=== PATIENT | male | born 1955 | race Caucasian/White ===

== ENCOUNTER 2019-03-11 07:06 | Outpatient (CLI) | payer BC, SELFPAY ==
--- NOTE | 2019-03-11 07:17 | XR_ITS ---
WS: [id number] KUB, 03/11/2019 Clinical Data: RIGHT FLANK PAIN Comparison: KUB, 03/12/2017. Findings: No abnormal intraabdominal masses are seen. There is no dilatated small bowel or evidence of obstruc tion. There is fecal material overlying the right kidney but there may be several right renal calcification s. No definite left renal calcifications are seen. There are clips adjacent to the medial left diaphr agm and also in the right side of the abdomen adjacent to the T10-T11 intervertebral disc. There is a lso a small wire which extends from the chest to overlie the left upper quadrant. Phleboliths are see n in the pelvis. There are vasectomy clips overlying both scrotums. XR/XR abdomen 1V* [id number] Impression: 1. Possible right renal calcifications. 2. Large amount of fecal material in the colon.
== END 2019-03-11 07:07 | disposition home or self-care (01) ==
LOC: RAD 07:11
PROVIDERS: Family Provider Electrodiagnostic Medicine; PCP Electrodiagnostic Medicine; Visit Provider Urology
DX: K59.00 Constipation, unspecified (principal); R10.9 Unspecified abdominal pain
CPT/HCPCS: 74018; 81001

== ENCOUNTER → 2019-12-18 17:45 | Outpatient (BNVA) | payer BC, SELFPAY | PROVIDERS: Family Provider Electrodiagnostic Medicine; PCP Electrodiagnostic Medicine; Visit Provider Nurse Practitioner Family | DX: Z20.828 Contact with and (suspected) exposure to other viral communicable diseases (principal) | CPT/HCPCS: 87635 ==

== ENCOUNTER 2021-03-12 11:59 | Outpatient (CLI) | payer MEDICARE, OTHER, SELFPAY ==
--- NOTE | 2021-03-12 12:00 | XR_ITS ---
WS: [id number] XR KUB [id number] REASON FOR EXAM: RENAL CALCULUS, RIGHT FINDINGS: Right renal calculi without interval change compared to 03/11/2019. No other significant abdominal or pelvic finding. XR/XR KUB [id number] IMPRESSION: Stable right renal calculi.
== END 2021-03-12 12:00 | disposition home or self-care (01) ==
PROVIDERS: PCP Electrodiagnostic Medicine; Visit Provider Urology
DX: N20.0 Calculus of kidney (principal); N52.1 Erectile dysfunction due to diseases classified elsewhere
CPT/HCPCS: 74018; 81003; 84153

== ENCOUNTER → 2021-05-29 09:40 | Outpatient (BNVA) | payer MEDICARE, OTHER, SELFPAY | PROVIDERS: PCP Electrodiagnostic Medicine; Visit Provider Internal Medicine Cardiovascular Disease | DX: I25.10 Atherosclerotic heart disease of native coronary artery without angina pectoris (principal); I10 Essential (primary) hypertension; E78.5 Hyperlipidemia, unspecified | CPT/HCPCS: 99214 ==

== ENCOUNTER 2021-07-25 08:11 | Outpatient (CLI) | payer MEDICARE, OTHER, SELFPAY ==
--- NOTE | 2021-07-25 08:45 | USCV_ITS ---
Blas Cummings Age: 65 Gender: M : 1955 Exam Date: 07/25/2021 08:26 Ordering Phys: Apolonia Davila MD ([email or web address]) Technologist: Jarrett Ramsay Exam Location: [facility] [place] Indication: DIZZY Risk Factors: Previous Vascular Surgery: Right Brachial BP: / Left Brachial BP: / Right Left Velocity (cm/s) Spectral Plaque Velocity (cm/s) Spectral Plaque Syst/Diast Broadening Syst/Diast Broadening 90.40/ 20.90 Prox CCA 84.10 / 17.10 108.10/13.20 Mid CCA 102.50/ 19.70 88.20/ 19.80 Distal CCA 82.80 / 17.10 78.30/ 15.40 Prox ICA 59.80 / 11.10 78.30/ 27.60 Mid ICA 63.20 / 17.10 100.30/32.00 Distal ICA 83.70 / 21.40 118.00 ECA 119.60 0.93 ICA/CCA 0.82 Antegrade Vertebral Antegrade 42.20/ 11.70 cm/s 79.50/ 21.40 cm/s Bi Subclavian Tri 107.7 0 FINDINGS Minimal plaques bilaterally at the bifurcations. Antegrade flow in the vertebral arteries bilaterally. Normal Doppler flow velocities in the vertebral and external carotid arteries bilaterally CONCLUSIONS Minimal plaques bilaterally at the bifurcations, suggesting less than 50% stenosis. No significant stenosis in the external carotid or the vertebral arteries bilaterally based on the Doppler flow velocities. No similar previous studies are available for comparison Dr Apolonia Davila MD [facility] (Electronically Signed) Final Date: 26 Jul 2021 07:56 S
== END 2021-07-25 08:12 | disposition home or self-care (01) ==
PROVIDERS: PCP Electrodiagnostic Medicine; Visit Provider Internal Medicine Cardiovascular Disease
DX: I77.9 Disorder of arteries and arterioles, unspecified (principal); R09.89 Other specified symptoms and signs involving the circulatory and respiratory systems
CPT/HCPCS: 93880

== ENCOUNTER → 2022-01-01 12:03 | Outpatient (BNVA) | payer MEDICARE, OTHER, SELFPAY | PROVIDERS: PCP Electrodiagnostic Medicine; Visit Provider Internal Medicine Cardiovascular Disease | DX: I10 Essential (primary) hypertension (principal); E78.5 Hyperlipidemia, unspecified; I25.10 Atherosclerotic heart disease of native coronary artery without angina pectoris; Z95.1 Presence of aortocoronary bypass graft; Z87.891 Personal history of nicotine dependence | CPT/HCPCS: 99213; 99214 ==

== ENCOUNTER → 2022-01-16 10:43 | Outpatient (BNVA) | payer MEDICARE, OTHER, SELFPAY | PROVIDERS: PCP Electrodiagnostic Medicine; Visit Provider Otolaryngology | DX: H91.91 Unspecified hearing loss, right ear (principal); H92.01 Otalgia, right ear; M26.623 Arthralgia of bilateral temporomandibular joint | CPT/HCPCS: 99203 ==

== ENCOUNTER 2022-03-24 05:35 | Inpatient (IN) | payer MEDICARE, SELFPAY ==
[2022-03-24] VITALS (33 sets, daily range): BP systolic 92–199; BP diastolic 51–117; PULSE 54–97; RESP 12–23; TEMP 36.6; O2SAT 91–100; BMI 29.7
--- NOTE | 2022-03-24 05:43 | XRR_ITS ---
PROCEDURE INFORMATION: Exam: XR Chest Exam date and time: 03/24/2022 5:59 AM Age: 66 years old Clinical indication: Pain; Chest pressure; Prior surgery; Surgery type: Heart; Additional info: Cp TECHNIQUE: Imaging protocol: Radiologic exam of the chest. Views: 1 view. COMPARISON: CR XR chest 1V [id number] 22/07/2018 16:47 FINDINGS: Lungs: Unremarkable. No consolidation. Pleural spaces: Unremarkable. No pleural effusion. No pneumothorax. Heart/Mediastinum: CABG again seen. Diffuse vascular calcification. The heart is normal size. Bones/joints: Unremarkable. XR/XR chest 1V portable [id number] IMPRESSION: No acute finding.
--- NOTE | 2022-03-24 05:57 | ECG_ITS ---
[facility] Test Date: 2022-03-24 Pat Name: Blas Cummings Department: Room: Gender: Male Script Coordinator: : 1955 Requested By: Moi Chang Order Number: [id number] Mikaela MD: Shayla Lima M.D. Measurements Intervals [place] Rate: 76 P: 19 VA: 168 QRS: 29 QRSD: 89 T: 11 QT: 364 QTc: 410 Interpretive Statements SINUS RHYTHM Compared to ECG 07/22/2018 21:37:31 No significant changes Electronically Signed On 03-24-2022 8:45:37 AIR TRAFFIC INSTRUCTOR by Shayla Lima M.D. [id number]
[2022-03-24 06:12] LABS: Basophils # 0.1 10^3/uL (0.0-0.1); Basophils % 0.9 %; Eosinophils # 0.4 10^3/uL (0.0-0.8); Eosinophils % 5.1 %; Hematocrit 46.6 % (42.0-52.0); Hemoglobin 15.3 g/dL (11.7-16.6); Lymphocytes % 29.2 %; Mean Corpuscular HGB Conc 32.8 g/dL (30.0-36.0); Mean Corpuscular Hemoglobin 29.2 pg (28.0-34.0); Mean Corpuscular Volume 88.9 fl (80-94); Mean Platelet Volume 8.6 fL (7.4-10.4); Monocytes # 0.8 10^3/uL (0.2-0.9); Monocytes % 11.1 %; Neutrophils # 3.69 10^3/uL (1.8-7.7); Neutrophils % 53.4 %; Nucleated Red Blood Cells % 0 %; Platelet Count 270 10^3/cmm (130-400); Red Blood Count 5.24 10^6/uL (4.1-5.3); Red Cell Distribution Width 13.1 % (12.1-15.1); White Blood Count 6.9 10^3/uL (4.0-10.0)
--- NOTE | 2022-03-24 06:30 | CTR_ITS ---
PROCEDURE INFORMATION: Exam: CTA Chest With Contrast Exam date and time: 03/24/2022 7:09 AM Age: 66 years old Clinical indication: Pain; Chest pressure; Prior surgery; Surgery type: Cabg; Additional info: Chest pain TECHNIQUE: Imaging protocol: Computed tomographic angiography of the chest with contrast. 3D rendering (Not supervised by radiologist): MIP reconstructed images were created by the technologist. Radiation optimization: All CT scans at this facility use at least one of these dose optimization techniques: automated exposure control; mA and/or kV adjustment per patient size (includes targeted exams where dose is matched to clinical indication); or iterative reconstruction. Contrast material: OMNI 350; Contrast volume: 90 ml; Contrast route: INTRAVENOUS (IV); COMPARISON: CR (CHEST, ) 03/24/2022 5:59 AM RADIATION DOSE METRICS: Total DLP (mGy-cm): 428.13 FINDINGS: Pulmonary arteries: No pulmonary artery embolism identified. Aorta: The pulmonary artery phase bolus is suboptimal for imaging of the aorta and systemic arteries. No thoracic aortic aneurysm. No displaced intimal calcifications as visualized. Thyroid: The bilateral thyroid lobes are unremarkable. Lungs: Anterior right middle lobe medial segment pulmonary parenchymal scarring. Inferior segment lingular pulmonary subsegmental atelectasis/scarring. Peripheral left lower lobe lateral basilar segment mild cicatricial bronchiectasis. A true fissural 2.8 mm noncalcified pulmonary nodule is noted in the superior segment of the left lower lobe (LOC -156.6). Pleural spaces: No pneumothorax. No pleural effusion. Heart: Normal. No pericardial effusion. Coronary arteries: Atherosclerotic calcifications are present involving the LAD coronary artery. Lad and RCA coronary artery stents. Status post coronary artery stenting. Bolus phase limits assessment of coronary artery grafts. Lymph nodes: Bilateral hilar granulomatous jamarcus calcifications are present. Small triangular subpleural lymph node of the right middle lobe at the minor fissure. Bones/joints: Thoracic spine vertebral body marginal osteophytes are noted at multiple levels. Mild rightward upper thoracic spinal curvature. The patient is status post median sternotomy with sternal cerclage wires. Soft tissues: Unremarkable. CT/CT angio chest PE protcl [id number] IMPRESSION: 1. No pulmonary artery embolism identified. 2. Limitations in assessment of aortic pathology as above due to bolus timing. 3. Coronary atherosclerosis. 4. Noncalcified left lower lobe pulmonary nodule. For patients at low risk (minimal or absent history of smoking and of other known risk factors), no routine follow-up is indicated. For patients at high risk (history of smoking or of other known risk factors), consider optional CT at 12 months. (Sushma et al., Fleischner Society, 2017).
[2022-03-24 06:33] LABS: Troponin(5th) Baseline 9 ng/L (0-15)
--- NOTE | 2022-03-24 06:34 | ED_ITS ---
HPI - Chest Pain General: Chief Complaint: Chest Pain Stated Complaint: CP Time Seen by Provider: 03/24/22 06:23 History of Present Illness: 66-year-old male with a history of coronary artery disease, status post three-vessel bypass grafting, history of hypertension and hyperlipidemia who presents with chest pain which started this morning approximately 15 minutes prior to arrival to the emergency department. Patient states that the pain feels like a tightness, located in the midsternal chest area. There is no radiation. He denies feeling more short of breath. He has had nausea but no diaphoresis. He denies fever. He states he has had a cough productive of green sputum for the past 2 days. He states he took some leftover amoxicillin the past few days and the cough is improved. States this feels different than his prior cardiac pain. No prior history of DVT or pulmonary embolism. Associated symptoms: Deny abdominal pain, diaphoresis, fever(s), nausea, palpitations or vomiting Review of Systems General: Reports: 10 or more systems reviewed and unremarkable except in HPI and below Const: Denies: fever(s), chills, body aches or diaphoresis ENMT: Reports: epistaxis; Denies: throat pain, post nasal drip or sinus pain Card: Reports: chest pain; Denies: palpitations, irregular heart rhythm, dyspnea on exertion or orthopnea Resp: Reports: productive cough and chest congestion; Denies: hemoptysis GI: Denies: abdominal pain, nausea, vomiting or diarrhea Musc: Denies: extremity swelling PFSH ED PFSH: Medical History Coronary artery disease Erectile dysfunction Renal calculus, right Surgical History H/O wrist surgery History of extraction of renal calculus History of hernia surgery Status post coronary artery bypass graft Status post coronary artery stent placement Family History Father , AT AGE 52 CEREBRAL HEMORRHAGE Stroke Mother , AT AGE 90 ALZHEIMERS Anesthesia complication CAD (coronary artery disease), Onset Age: 60 enlarged heart Dementia Brother Anesthesia complication CAD (coronary artery disease), Onset Age: 60 stents Sister Anesthesia complication Grandfather Cancer Grandmother Cancer Denies family history of Diabetes Clotting disorder Chronic kidney disease (CKD) Suicide Bleeding disorder Lung disease Social History Smoking and tobacco status: former smoker Alcohol intake: never Adopted: No Caregiver/support person: No Marital status: Current occupational status: employed Physical Exam Const: COMMON NORMALS: no acute distress, patient oriented x3, healthy appearing and alert HENMT: COMMON NORMALS: normocephalic, atraumatic, external ears normal, Normal external nose present, Normal nasal mucous membranes and turbinates present and oropharynx normal HEAD & SCALP: normocephalic and atraumatic NOSE: Normal external nose present and Normal nasal mucous membranes and turbinates present EXTERNAL EAR: Yes external ears normal Eye: COMMON NORMALS: Equal, round and reactive pupils present, EOMs intact bilaterally and conjunctivae normal CONJUNCTIVA: Yes conjunctivae normal PUPIL: Yes Equal, round and reactive pupils present Neck/C-Spine: COMMON NORMALS: supple and no JVD Lymph: OTHER: No cervical lymphadenopathy Chest: OTHER: No chest wall tenderness Resp: COMMON NORMALS: normal respiratory effort, No retractions and clear to auscultation bilaterally AUSCULTATION: clear to auscultation bilaterally Cardio: COMMON NORMALS: no JVD, regular rate and regular rhythm RATE: regular rate RHYTHM: regular rhythm OTHER: Occasional PVCs GI: COMMON NORMALS: Normal to inspection, nondistended, normoactive bowel sounds present, Soft to palpation and non-tender PALPATION: Yes Soft to palpation OTHER: Nondistended Back/Pelvis: THORACIC SPINE/UPPER BACK: Yes normal to inspection and No thoracic spinal tenderness Extremity: OTHER: No swelling or tenderness Neuro: COMMON NORMALS: patient oriented x3 SENSORIUM/ORIENTATION: Yes alert Skin: COMMON NORMALS: no rashes or lesions noted GENERAL SKIN EXAM: no rashes or lesions noted Course ED course: 66-year-old male with a history of hypertension, hyperlipidemia and diabetes who presents with chest pain. The patient has a 2-day history of a preceding respiratory illness. Pain is now midsternal. He does present slightly hypertensive raising concern for possible dissection. Certainly with a recent illness, concern for COVID and possible pulmonary embolism as well. We will give the patient aspirin, nitro and morphine. If his blood pressure does not improve, he may need IV medications for blood pressure improvement. We will obtain COVID, influenza and a CTA of the chest. We will also do serial cardiac enzymes. His EKG he has T wave inversion in lead III but no other acute ischemic changes. He does not have a STEMI. Will check troponins. Reevaluation(s): Reevaluation #1: Patient's pain is now 4 out of 1:10 sublingual nitroglycerin and 4 mg of morphine IV. Patient is also been given aspirin. Patient's initial troponin was normal. At 9. Repeat 2-hour troponin is 104.7 with a delta of 95.7. We will repeat sublingual nitroglycerin and placed Nitropaste and give the patient an additional dose of morphine. We will bolus with heparin and placed on a heparin drip. Will contact cardiology. Reevaluation #2: After second sublingual nitroglycerin and Nitropaste with morphine, patient's pain is improved. We will initiate a nitro drip. Discussed with cardiology. Patient will need admission. Reevaluation #3: Patient has been titrated up to 20 mics of nitro. Pain is almost gone. Discussed with Dr. Marquez who recommends platelet therapy with aspirin and Plavix as well as heparin which is already been initiated. Recommends consulting the general web site admin and have the hospitalist admit the patient. Consultations: Consultation #1: Discussed with Dr. Marquez. Recommends starting nitro drip. If pain not gone in 10 minutes activate Jumpbasting Canvas Baster. Consultation #2: Discussed with Dr. Michael, cardiology, who will see the patient in consultation. Recommends hospitalist admit. Consultation #3: Discussed with Dr. Linda for admission Vital Signs: Vital signs: Vital Signs Pulse Rate 71 03/24/22 09:36 Respiratory Rate 20 H 03/24/22 09:36 Blood Pressure 134/99 03/24/22 09:36 Pulse Oximetry 99 03/24/22 09:36 Oxygen Delivery Me thod 03/24/22 06:45 Oxygen Flow Rate 2 03/24/22 06:45 MDM - Chest Pain Medical Decision Making Patient presents with chest pain which started 1 hour prior to arrival. He has a history of hyperlipidemia, hypertension and a previous CABG 4 years ago. Upon arrival, he did have ST segment depression in lead III. After aspirin and sublingual nitroglycerin, the ST segment depression has resolved. The patient had continued chest pain so was given morphine and placed on a nitroglycerin drip he has been bolused with heparin and placed on a heparin drip. He is also been given 324 mg of aspirin and 600 mg of Plavix. Have discussed with the brood station manager who feels that the patient is not stable for admission and they will plan for cath tomorrow. Discussed with the noninterventional web site admin for consultation as well as the hospitalist for admission. Patient did have a CTA of his chest which is negative for pulmonary embolism. There is no aortic aortic aneurysm noted on the CT. With the significant change in his troponin and the EKG changes, I feel that this is most likely acute coronary syndrome. At this point the patient is stable for admission. Lab Data 03/24/22 06:01 03/24/22 06:01 Radiology Impressions Chest X-Ray 03/24/22 05:43 IMPRESSION: No acute finding. Chest CTA 03/24/22 06:30 IMPRESSION: 1. No pulmonary artery embolism identified. 2. Limitations in assessment of aortic pathology as above due to bolus timing. 3. Coronary atherosclerosis. 4. Noncalcified left lower lobe pulmonary nodule. For patients at low risk (minimal or absent history of smoking and of other known risk factors), no routine follow-up is indicated. For patients at high risk (history of smoking or of other known risk factors), consider optional CT at 12 months. (Sushma et al., Fleischner Society, 2017). Laboratory Results WBC 6.9 10^3/uL (4.0-10.0) 03/24/22 06:01 RBC 5.24 10^6/uL (4.1-5.3) 03/24/22 06:01 Hgb 15.3 g/dL (11.7-16.6) 03/24/22 06:01 Hct 46.6 % (42.0-52.0) 03/24/22 06:01 MCV 88.9 fl (80-94) 03/24/22 06:01 MCH 29.2 pg (28.0-34.0) 03/24/22 06:01 MCHC 32.8 g/dL (30.0-36.0) 03/24/22 06:01 RDW 13.1 % (12.1-15.1) 03/24/22 06:01 Plt Count 270 10^3/cmm (130-400) 03/24/22 06:01 MPV 8.6 fL (7.4-10.4) 03/24/22 06:01 Neut % (Auto) 53.4 % 03/24/22 06:01 Lymph % (Auto) 29.2 % 03/24/22 06:01 Stearns % (Auto) 11.1 % 03/24/22 06:01 Eos % (Auto) 5.1 % 03/24/22 06:01 Baso % (Auto) 0.9 % 03/24/22 06:01 Neut # (Auto) 3.69 10^3/uL (1.8-7.7) 03/24/22 06:01 Lymph # (Auto) 2.0 10^3/uL (0.8-4.8) 03/24/22 06:01 Stearns # (Auto) 0.8 10^3/uL (0.2-0.9) 03/24/22 06:01 Eos # (Auto) 0.4 10^3/uL (0.0-0.8) 03/24/22 06:01 Baso # (Auto) 0.1 10^3/uL (0.0-0.1) 03/24/22 06:01 Nucleated RBC % (auto) 0 % 03/24/22 06:01 Nucleated RBCs # 0.0 /100WBC 03/24/22 06:01 ESR 18 mm/hr (0-10) H 03/24/22 06:01 Sodium 139 mmol/L (136-145) 03/24/22 06:01 Potassium 4.1 mmol/L (3.5-5.1) 03/24/22 06:01 Chloride 106 mmol/L (98-107) 03/24/22 06:01 Carbon Dioxide 20 mmol/L (22-29) L 03/24/22 06:01 Anion Gap 17.1 (5-19) 03/24/22 06:01 BUN 21 mg/dL (8-23) 03/24/22 06:01 Creatinine 0.8 mg/dL (0.7-1.2) 03/24/22 06:01 GFR Calculation 96.7 mL/min (90-130) 03/24/22 06:01 Glucose 121 mg/dL (65-115) H 03/24/22 06:01 Calculated Osmolality 292 mOsm/kg (285-295) 03/24/22 06:01 Calcium 9.1 mg/dL (8.5-10.5) 03/24/22 06:01 Total Bilirubin 0.2 mg/dL (0.15-1.2) 03/24/22 06:01 AST 13 U/L (0-40) 03/24/22 06:01 ALT 12 U/L (0-41) 03/24/22 06:01 Alkaline Phosphatase 74 U/L (40-130) 03/24/22 06:01 Troponin T Baseline 9 ng/L (0-15) 03/24/22 06:01 Troponin T 120 Minute 104.7 ng/L (0-15) H 03/24/22 08:10 Delta Troponin T 95.7 ABS# (0-10) H* 03/24/22 08:10 NT-Pro-B Natriuret Pep 101 pg/mL (0-125) 03/24/22 06:01 Total Protein 7.2 g/dL (6.6-8.7) 03/24/22 06:01 Albumin 3.9 g/dL (3.5-5.2) 03/24/22 06:01 Globulin 3.3 g/dL (1.3-4.6) 03/24/22 06:01 Nasal Influ A H1 2009 PCR Not detected (NOT DETECT) 03/24/22 06:45 Coronavirus 229E (PCR) Not detected (NOT DETECT) 03/24/22 06:45 Influenza A (H1) PCR Not detected (NOT DETECT) 03/24/22 06:45 Influenza A (H3) PCR Not detected (NOT DETECT) 03/24/22 06:45 Influenza Type A Ag Cancelled 03/24/22 06:45 Influenza Type A (PCR) Not detected (NOT DETECT) 03/24/22 06:45 Influenza Type B Ag Cancelled 03/24/22 06:45 Influenza Type B (PCR) Not detected (NOT DETECT) 03/24/22 06:45 SARS-CoV-2 (PCR) Not detected (NOT DETECT) 03/24/22 06:45 EKG Data EKG 1: I personally reviewed and interpreted this EKG as follows: EKG interpretation date: 03/24/22 EKG interpretation time: 06:40 Ischemic changes: t wave inversions (lead III) Interpretation: Normal axis, normal sinus rhythm. T wave inversion in lead III, no other acute ST or T wave changes. EKG 2: I personally reviewed and interpreted this EKG as follows: EKG interpretation date: 03/24/22 EKG interpretation time: 07:45 Interpretation: Normal sinus rhythm, no ST segment elevation. T wave inversion in V1. No acute ST segment elevation MT changes. EKG 3: I personally reviewed and interpreted this EKG as follows: EKG interpretation date: 03/24/22 EKG interpretation time: 10:18 Interpretation: No ST segment elevation. T wave depression that was previously seen has resolved. The patient does have T wave inversion in V1. Critical Care Time Critical Care Time: Critical Care Time: Yes Total Critical Care Time: 60 Attestation: See below Critical Care Event: The high probability of a clinically significant, sudden or life threatening deterioration of the patient's [] system(s) required my full and direct attention, intervention and personal management. The critical care time is as shown. This time is in addition to time spent performing any reported procedures but includes the following: [x] Data and vital sign review and interpretation [x] Patient assessment, examination and intervention [x] Documentation [x] Medication orders and management Critical care involves ordering tests, evaluating results, reassessing the patient, talking with specialist, ordering medications with high risk of cardiovascular compromise due to non-ST elevation MT. Discharge Plan Discharge Patient Disposition: Admitted As Inpatient Clinical Impression: Acute non-ST segment elevation myocardial infarction Condition: Stable Prescriptions: No Action lovastatin 40 mg tablet extended release 24 hr 40 mg PO DAILY PRN (Reason: CHOLESTEROL) aspirin 325 mg tablet 325 mg PO DAILY PRN (Reason: Pain) metoprolol succinate 25 mg tablet extended release 24 hr 6.25 mg PO DAILY PRN (Reason: HEARTRATE) magnesium oxide 400 mg magnesium capsule 400 mg PO DAILY PRN (Reason: Pain) hydrocodone-acetaminophen 5-325 mg tablet 1 tab PO BID PRN (Reason: Renal colic) 5 Days Qty: 10 0RF Rx Instructions: Only for active renal colic fluticasone propionate [Flonase Allergy Relief] 50 mcg/actuation spray,suspension 1 spray intranasal DAILY Rx Instructions: administer into each nostril sildenafil 50 mg tablet 50 mg PO .prn tramadol 50 mg tablet 50 mg PO TID PRN (Reason: Pain) omeprazole 40 mg capsule,delayed release(DR/EC) 40 mg PO DAILY Qty: 90 0RF Referrals: aFcundo Forman DO [Primary Care Provider] - Coding Level of Care Code ED Grain Elevator Clerk for Chg Fwd Exam Comprehensive
[2022-03-24 06:39] LABS: Alanine Aminotransferase 12 U/L (0-41); Albumin Level 3.9 g/dL (3.5-5.2); Alkaline Phosphatase 74 U/L (40-130); Anion Gap 17.1 (5-19); Aspartate Amino Transferase 13 U/L (0-40); Blood Urea Nitrogen 21 mg/dL (8-23); Calcium 9.1 mg/dL (8.5-10.5); Carbon Dioxide 20 mmol/L (22-29); Chloride 106 mmol/L (98-107); Globulin 3.3 g/dL (1.3-4.6); Glomerular Filtration Rate 96.7 mL/min (90-130); Glucose 121 mg/dL (65-115); NT Pro B Type Natriuretic Pept 101 pg/mL (0-125); Osmolality Calculated 292 mOsm/kg (285-295); Potassium 4.1 mmol/L (3.5-5.1); Sodium 139 mmol/L (136-145); Total Bilirubin 0.2 mg/dL (0.15-1.2); Total Protein 7.2 g/dL (6.6-8.7)
[2022-03-24] MEDS: aspirin 81 mg Chew Tablet 324 MG PO (06:40)
[2022-03-24] MEDS: morphine 4 mg/mL SDV 1 mL IVP ×3 (06:40→09:27)
[2022-03-24] MEDS: ondansetron 2 mg/ML SDV 2 mL 4 MG IVP (06:40)
[2022-03-24] MEDS: nitroglycerin 0.4 mg sublingual Tablet SUBLINGUAL (06:41)
--- NOTE | 2022-03-24 06:47 | PC.NURSE ---
Pt placed on 2L NC after morphine for O2 sat 90 on room air. Now 92 on 2L NC
[2022-03-24] MEDS: iohexol 350 mg/mL 500 mL Btl (per mL) IV (07:13)
--- NOTE | 2022-03-24 07:44 | ECG_ITS ---
[facility] Test Date: 2022-03-24 Pat Name: Blas Cummings Department: Room: Gender: Male Resolution Manager: : 1955 Requested By: Moi Chang Order Number: [id number] Mikaela MD: Shayla Lima M.D. Measurements Intervals [place] Rate: 62 P: 40 HI: 176 QRS: 51 QRSD: 82 T: 58 QT: 386 QTc: 393 Interpretive Statements SINUS RHYTHM Compared to ECG 03/24/2022 05:57:45 No significant changes Electronically Signed On 03-24-2022 9:03:52 COVERER by Shayla Lima M.D. [id number]
[2022-03-24 08:49] LABS: Adenovirus Not Detected (NOT DETECT); Chlamydia Pneumoniae Not Detected (NOT DETECT); Coronavirus 229E,HKU1,NL63,OC4 Not Detected (NOT DETECT); Human Metapneumovirus Not Detected (NOT DETECT); Human Rhinovirus/Enterovirus Not Detected (NOT DETECT); Influenza A Not Detected (NOT DETECT); Influenza A H1 Not Detected (NOT DETECT); Influenza A H1-2009 Not Detected (NOT DETECT); Influenza A H3 Not Detected (NOT DETECT); Influenza B Not Detected (NOT DETECT); Mycoplasma Pneumoniae Not Detected (NOT DETECT); Parainfluenza Virus Type 1 Not Detected (NOT DETECT); Parainfluenza Virus Type 2 Not Detected (NOT DETECT); Parainfluenza Virus Type 3 Not Detected (NOT DETECT); Parainfluenza Virus Type 4 Not Detected (NOT DETECT); Respiratory Syncytial Virus A Not Detected (NOT DETECT); Respiratory Syncytial Virus B Not Detected (NOT DETECT); SARS-COV-2 Not Detected (NOT DETECT)
[2022-03-24 09:01] LABS: Influenza A Not Detected (NOT DETECT); Influenza A H1 Not Detected (NOT DETECT); Influenza A H1-2009 Not Detected (NOT DETECT); Influenza A H3 Not Detected (NOT DETECT); Influenza B Not Detected (NOT DETECT); Results from Genmark
[2022-03-24 09:02] LABS: Troponin 5 2HR 104.7 ng/L (0-15)
[2022-03-24 09:03] LABS: Troponin 5 2HR Delta 95.7 ABS# (0-10)
[2022-03-24 09:12] LABS: Erythrocyte Sedimentation Rate 18 mm/hr (0-10)
--- NOTE | 2022-03-24 09:54 | ECG_ITS ---
[facility] Test Date: 2022-03-24 Pat Name: Blas Cummings Department: Room: Gender: Male Boiler Room Helper: : 1955 Requested By: Savannah Tobin Order Number: [id number] Mikaela MD: Yordan Gilbert M.D. Measurements Intervals [place] Rate: 63 P: 37 [place]: 172 QRS: 48 QRSD: 89 T: 71 QT: 404 QTc: 414 Interpretive Statements SINUS RHYTHM Compared to ECG 03/24/2022 07:44:58 No significant changes Electronically Signed On 03-26-2022 7:46:12 CAR TESTER by Yordan Gilbert M.D. [id number]
[2022-03-24] MEDS: nitroglycerin 1 gm/inch oint Pkt 1.5 INCH TOPICAL (10:08)
[2022-03-24] MEDS: heparin drip 25,000 UNIT/500 ML PREMIX 25 UNIT IV (10:49)
[2022-03-24] MEDS: nitroglycerin drip 50 MG/250 ML PREMIX IV (10:49)
[2022-03-24] MEDS: heparin 5,000 unit/mL INJ 1 mL IV (10:50)
[2022-03-24] MEDS: clopidogrel 300 mg Tablet 600 MG PO (11:14)
--- NOTE | 2022-03-24 12:02 | ECG_ITS ---
[facility] Test Date: 2022-03-24 Pat Name: Blas Cummings Department: Room: Gender: Male Museum Exhibit Designer: : 1955 Requested By: Moi Chang Order Number: [id number] Mikaela MD: Yordan Gilbert M.D. Measurements Intervals [place] Rate: 62 P: 35 [place]: 176 QRS: 45 QRSD: 84 T: 73 QT: 383 QTc: 391 Interpretive Statements SINUS RHYTHM Compared to ECG 03/24/2022 10:14:06 No significant changes Electronically Signed On 03-26-2022 7:51:17 SPACE CONTROL AGENT by Yordan Gilbert M.D. [email or web address] [email or web address]/store/[id number]
--- NOTE | 2022-03-24 12:49 | P.HP_ITS ---
Providers/Chief Complaint Admitting Physician: Bailey Linda MD Primary Care Provider: Facundo Forman DO Chief Complaint: CP History of Present Illness Blas Cummings is a 66 year old male with past medical history of coronary disease status post CABG with most recent angiogram in 2019 at which time grafts are open. At that time he showed normal LVEF. He was free of angina. Recently seen by cardiology on January 01, 2022. Also carries a history of hypertension, hyperlipidemia presented to the hospital today with chest pain that started 15 minutes before he arrived to the ER. Pain is located in the middle of the chest around the sternal area and feels like a tightness. It did not move anywhere. He says he did have some associated shortness of breath with it but no sweating. He did feel slightly nauseous. He says he recently has been feeling a little ill and has been having cough productive of green sputum for the last 2 days. He did take some leftover amoxicillin he had from a prior infection and feels the cough is better. He denies history of DVT or PE. Denies abdominal pain, fever, vomiting, diarrhea at this time. ED course: On arrival blood pressure 134/99, respiratory 20, pulse 71, saturating 99% on 2 L nasal cannula. Patient was given aspirin nitro morphine. COVID test was done, influenza test was done. CT of the chest was obtained. Serial cardiac enzymes were ordered. T wave inversions were present in lead III but no other acute ischemic changes. No apparent ST elevation. He was given sublingual nitro and morphine. Initial troponin was normal, 2-hour troponin 104 with a delta of 95.7. Third troponin pending at this time. Patient was placed on Nitropaste and started on a heparin drip. Case was discussed with cardiology. Nitro drip was started. Ever since he has been on nitro drip his pain has resolved at this time. Cardiology recommended to start on aspirin Plavix. Dr. Lima was also contacted who will see the patient in consultation. CTA chest did not show pulmonary embolism. It did show a noncalcified left lowe r lobe pulmonary nodule. Chest x-ray with no acute finding. WBC 6.9, sodium 139, potassium 4.1, anion gap 17.1, creatinine 0.8. Influenza negative, COVID- negative. Hospitalist was requested to admit the patient at this time. Medications/Allergies Home Medications Medication Instructions Recorded Confirmed Last Taken Type lovastatin 40 mg tablet,extended 40 mg PO DAILY PRN CHOLESTEROL 03/11/19 03/24/22 Unknown History release 24 hr aspirin 325 mg tablet 325 mg PO DAILY PRN Pain 10/26/20 03/24/22 Unknown History fluticasone propionate 50 1 spray intranasal DAILY 10/26/20 03/24/22 Unknown History mcg/actuation nasal spray,suspension (Flonase Allergy Relief) metoprolol succinate 25 mg 6.25 mg PO DAILY PRN HEARTRATE 10/26/20 03/24/22 Unknown History tablet,extended release 24 hr hydrocodone 5 mg-acetaminophen 325 1 tab PO BID PRN Renal colic 5 03/12/21 03/24/22 Unknown Rx mg tablet days #10 tabs magnesium oxide 400 mg PO DAILY PRN Pain 03/12/21 03/24/22 Unknown History sildenafil 50 mg tablet 50 mg PO .prn 05/29/21 03/24/22 Unknown History tramadol 50 mg tablet 50 mg PO TID PRN Pain 05/29/21 03/24/22 Unknown History omeprazole 40 mg capsule,delayed 40 mg PO DAILY #90 caps 12/31/21 03/24/22 Unknown Rx release Allergies Allergy/AdvReac Type Severity Reaction Status Date / Time clavulanic acid Allergy Severe hives Verified 01/16/22 10:52 [From Augmentin] amoxicillin Allergy Unknown Verified 01/16/22 10:52 clarithromycin [From Biaxin] Allergy Unknown Verified 01/16/22 10:52 loracarbef [From Lorabid] Allergy Unknown Verified 01/16/22 10:52 PFSH Acute PFSH: Medical History Coronary artery disease Erectile dysfunction Renal calculus, right Surgical History H/O wrist surgery History of extraction of renal calculus History of hernia surgery Status post coronary artery bypass graft Status post coronary artery stent placement Family History Father , AT AGE 52 CEREBRAL HEMORRHAGE Stroke Mother , AT AGE 90 ALZHEIMERS Anesthesia complication CAD (coronary artery disease), Onset Age: 60 enlarged heart Dementia Brother Anesthesia complication CAD (coronary artery disease), Onset Age: 60 stents Sister Anesthesia complication Grandfather Cancer Grandmother Cancer Denies family history of Diabetes Clotting disorder Chronic kidney disease (CKD) Suicide Bleeding disorder Lung disease Social History Smoking and tobacco status: former smoker Alcohol intake: never Adopted: No Caregiver/support person: No Marital status: Current occupational status: employed Vitals/I&O/Wt Last Vital Signs Pulse 71 03/24/22 09:36 Resp 20 H 03/24/22 09:36 BP 134/99 03/24/22 09:36 Pulse Ox 99 03/24/22 09:36 O2 Del Method 03/24/22 06:45 O2 Flow Rate 2 03/24/22 06:45 03/23/22 03/24/22 03/24/22 22:59 06:59 14:59 Intake Total 0.3 / 0.3 Balance 0.3 / 0.3 Weight last 48 hrs Weight 86.183 kg Physical Exam Narrative: General: Alert oriented x3, patient seen sitting up in bed cracking jokes, lots of family at bedside HEENT: Normocephalic, atraumatic, EOMI, breathing comfortably Cardio: Regular rate rhythm, normal S1-S2 Respiratory: Good bilateral air entry, no wheezes no rhonchi appreciated GI: Abdomen soft, nontender, nondistended, bowel sounds + Behavior: Appropriate and cooperative Extremities:no edema, no cyanosis Data 03/24/22 06:01 03/24/22 06:01 A&P Assessment and plan (1) Acute non-ST segment elevation myocardial infarction: (2) Status post coronary artery bypass graft: (3) Benign essential HTN: (4) Dyslipidemia: (5) Coronary artery disease: Plan #NSTEMI #Coronary artery disease status post CABG #Hyperlipidemia #Hypertension #Recent possible respiratory illness ? Admit to cardiac stepdown unit, placed on telemetry ? 6-hour delta troponin 233 ? Given aspirin 324 in the ER along with 600 Plavix ? Continue aspirin Plavix daily ? Atorvastatin 80 ? N.p.o. except meds ? Continue nitroglycerin drip ? If chest pain recurs repeat EKG ? Continue beta-re ? Cardiology consulted. Recommendations appreciated ? Check TSH, hemoglobin A1c, lipid profile ? Morphine 2 mg every 4 hours if needed for pain ? Zofran for nausea ? Continue on heparin drip - check echo DVT prophylaxis: On heparin drip at this time Full code Attestations Medical Necessity Statement*: Will cross greater than 2 midnight stay for management of NSTEMI Coding Level of Care Code Acute Code for Chg Fwd Diagnoses Acute non-ST segment elevation myocardial infarction I21.4 Status post coronary artery bypass graft Z95.1 Benign essential HTN I10 Dyslipidemia E78.5 Coronary artery disease I25.10
--- NOTE | 2022-03-24 12:59 | P.CONIM_ITS ---
Providers/Reason For Consult Consulting Physician/Specialty*: Dr. Lima, Cardiology Reason for Consult*: NSTEMI Attending Physician: Bailey Linda MD Primary Care Provider: Facundo Forman DO History of Present Illness History of Present Illness Blas Cummings is a 66 year old male with PMHx of coronary disease with bypass surgery x 3 few years back and previous stents to left anterior descending in January and right coronary artery, HTN, HLD and GERD.? His last coronary angiog christie was in 2019 when his grafts were open.? He was doing well overall until this morning at around 6:30 in morning when he developed left sided chest pressure 10/10 that lasted until he got morphine and was placed on NTG gtt. He c/o URI like symptoms in last week. EKG showed sinus rhythm with non specific T wave imversion in aVL. Troponin T increased from 9-->242. Review of Systems Const: Denies: fever(s) or chills Eyes: Denies: change in vision ENMT: Denies: bleeding gums Card: Reports: chest pain and dyspnea on exertion; Denies: palpitations, irregular heart rhythm, swelling of feet/ankles, lightheadedness, syncope, pre-syncope or orthopnea Resp: Denies: wheezing, hemoptysis or chest congestion GI: Denies: hematochezia : Denies: hematuria Musc: Denies: neck pain or back pain Skin/Breast: Reports: dry skin Neuro: Denies: headache(s) or dizziness Psych: Denies: anxiety or depression Endo: Denies: tired all the time Eitan/Lymph: Denies: easy bruising or easy bleeding All/Imm: Reports: seasonal rhinorrhea Medications/Allergies Home Medications Medication Instructions Recorded Confirmed Last Taken Type lovastatin 40 mg tablet,extended 40 mg PO DAILY PRN CHOLESTEROL 03/11/19 03/24/22 Unknown History release 24 hr aspirin 325 mg tablet 325 mg PO DAILY PRN Pain 10/26/20 03/24/22 Unknown History fluticasone propionate 50 1 spray intranasal DAILY 10/26/20 03/24/22 Unknown History mcg/actuation nasal spray,suspension (Flonase Allergy Relief) metoprolol succinate 25 mg 6.25 mg PO DAILY PRN HEARTRATE 10/26/20 03/24/22 Unknown History tablet,extended release 24 hr hydrocodone 5 mg-acetaminophen 325 1 tab PO BID PRN Renal colic 5 03/12/21 03/24/22 Unknown Rx mg tablet days #10 tabs magnesium oxide 400 mg PO DAILY PRN Pain 03/12/21 03/24/22 Unknown History sildenafil 50 mg tablet 50 mg PO .prn 05/29/21 03/24/22 Unknown History tramadol 50 mg tablet 50 mg PO TID PRN Pain 05/29/21 03/24/22 Unknown History omeprazole 40 mg capsule,delayed 40 mg PO DAILY #90 caps 12/31/21 03/24/22 Unknown Rx release Allergies Allergy/AdvReac Type Severity Reaction Status Date / Time clavulanic acid Allergy Severe hives Verified 01/16/22 10:52 [From Augmentin] amoxicillin Allergy Unknown Verified 01/16/22 10:52 clarithromycin [From Biaxin] Allergy Unknown Verified 01/16/22 10:52 loracarbef [From Lorabid] Allergy Unknown Verified 01/16/22 10:52 Current Medications Generic Name Dose Route Start Last Admin Trade Name Freq PRN Reason Stop Dose Admin Heparin Sodium (Porcine) 0 unit 03/24/22 09:43 03/24/22 10:50 Heparin 5,000 Unit/Ml Inj 1 Ml IV 4,400 unit PRN PRN Administration Heparin weight-base protocol Protocol Heparin Sodium/Sodium Chloride 25,000 unit in 500 mls @ 0 mls/hr 03/24/22 09:45 03/24/22 10:49 Heparin Drip IV 14.5 unit/kg/hr .Q0M BRIGID 25 mls/hr Administration Protocol Per Protocol Nitroglycerin/Dextrose 50 mg in 250 mls @ 0 mls/hr 03/24/22 10:30 03/24/22 11:01 Nitroglycerin Drip IV 10 mcg/min .Q0M BRIGID 3 mls/hr Titration Protocol Per Protocol Morphine Sulfate 4 mg 03/24/22 06:30 03/24/22 09:27 Morphine 4 Mg/Ml Sdv 1 Ml IVP 4 mg Q15M PRN Administration archie Nitroglycerin 0.4 mg 03/24/22 06:30 03/24/22 06:41 Nitroglycerin 0.4 Mg Sublingual Tablet SUBLINGUAL 0.4 mg Q5M PRN Administration CHEST PAIN PFSH Acute PFSH: Medical History Coronary artery disease Erectile dysfunction Renal calculus, right Surgical History H/O wrist surgery History of extraction of renal calculus History of hernia surgery Status post coronary artery bypass graft Status post coronary artery stent placement Family History Father , AT AGE 52 CEREBRAL HEMORRHAGE Stroke Mother , AT AGE 90 ALZHEIMERS Anesthesia complication CAD (coronary artery disease), Onset Age: 60 enlarged heart Dementia Brother Anesthesia complication CAD (coronary artery disease), Onset Age: 60 stents Sister Anesthesia complication Grandfather Cancer Grandmother Cancer Denies family history of Diabetes Clotting disorder Chronic kidney disease (CKD) Suicide Bleeding disorder Lung disease Social History Smoking and tobacco status: former smoker Alcohol intake: never Adopted: No Caregiver/support person: No Marital status: Current occupational status: employed Vitals/I&O/Wt Last Vital Signs Pulse 71 03/24/22 09:36 Resp 20 H 03/24/22 09:36 BP 134/99 03/24/22 09:36 Pulse Ox 99 03/24/22 09:36 O2 Del Method 03/24/22 06:45 O2 Flow Rate 2 03/24/22 06:45 03/23/22 03/24/22 03/24/22 22:59 06:59 14:59 Intake Total 0.3 / 0.3 Balance 0.3 / 0.3 Weight last 48 hrs Weight 190 lb Physical Exam Narrative: Gen: NAD, sitting comfortably in chair HEENT: EOMI, no pallor or icterus RS: CTAB/L; No wheezes or rales CVS: S1, S2 regular. No murmur or gallop RETAIL ANALYTICS MANAGER: AAOx3, No FND Ext: No edema, cyanosis PA: soft, obese, NT ND Data 03/24/22 06:01 03/24/22 06:01 Other Labs: Baseline troponin T 9--> 105--> 242 Other data: CTA chest (03/24/22) IMPRESSION: 1. No pulmonary artery embolism identified. 2. Limitations in assessment of aortic pathology as above due to bolus timing. 3. Coronary atherosclerosis. 4. Noncalcified left lower lobe pulmonary nodule. 07/24/18? [facility] Diagnostic Cath Status: Urgent Diagnostic Findings LM has 0% stenosis. CX has 0% stenosis. pLAD to mLAD: Severe 100% stenosis, ALYSHA: 3 flow. pRCA: Severe 100% stenosis, ALYSHA: 3 flow. Three grafts visualized. DHALIWAL to dLAD: patent. SVG to 1st Diag: patent. RENÉ to pRCA: patent. Coronary angiography shows right dominance. ? There is severe coronary artery disease with two vessel disease. ? All grafts patent. ? Patient has prior CABG. ? Indication for coronary angiogram: Abnormal stress test. 07/23/18 - Echo ?1-Normal left ventricular cavity size. Normal left ventricular ?systolic function. Left ventricular ejection fraction is ?estimated at 60 %. Grade I/IV diastolic dysfunction (abnormal ?relaxation filling pattern), normal to mildly elevated filling? pressures. ?2-There is no pericardial effusion. ?3-No significant valve abnormalities. ?4-Pulmonary artery systolic pressure is within normal limits.? ?5-No significant change since the prior echocardiogram study of. ?Sushil Frank MD ? (Electronically Signed) 07/23/18 Stress Test Small area of old myocardial infarction surrounded by medium-size area of ?moderate true-infarct ischemia noted in mid to distal inferior wall.? Small ?area of old myocardial infarction surrounded by medium-size area of mild true- ?infarct ischemia in the mid anterior wall.? This study is positive for ?ischemia.? EKG segment will be documented separately 1. EKG not suggestive of ischemia 2. Lexiscan injection unremarkable. ?02/18/16 [facility] w/PCI ? Blas is my patient well known to me from the clinic with history of ?questionable allergies to different antiplatelets with question of ?compliance with history of recurrent in-stent restenosis treated with ?drug-eluting stents to proximal and mid LAD and proximal RCA in the past ?admitted with unstable angina. Second and third troponin were in the range ?of non-ST elevation RI 0.5 therefore he was taken to the [facility] [employer] [facility] this morning. ?#1 Left main is normal ?#2 LAD is a moderate size and caliber vessel with proximal and mid 90% ?in-stent restenosis which in the past was also treated with a second ?drug-eluting stent within the previously placed stent. Ostial diagonal 1 ?is a small caliber size vessel with 70% ostial stenosis ?#3 LCx is a moderate size and caliber vessel with out significant stenosis. ?#4 RCA is it medium caliber and size vessel with proximal 99% in-stent ?restenosis with ALYSHA 2 blood flow. ?#5 Normal LV gram with ejection fraction 65%. There was no wall motion ?abnormality. Mild gradient across the aortic valve suggestive of mild aortic valve stenosis. A&P Assessment and plan (1) Acute non-ST segment elevation myocardial infarction: On heparin gtt and NTG drip -On ASA and statin -loaded with plavix 600 mg last night -plan for echo and start on low dose metoprolol. -plan for LHC in morning -Case was discussed with Dr. Gilbert. (2) Atherosclerosis of coronary artery of [place] heart without angina pectoris: s/p stents and CABGx 3 (3) Benign essential HTN: (4) Dyslipidemia: Plan GERD Patient seen today via Telehealth by agreement and consent of patient. Telehealth technology used during the visit include video and audio. The patient has been advised of the potential risks and limitations of this mode of treatment (including but not limited to the absence of in-person examination) and has agreed to be treated in a remote fashion in spite of them. Any and all of the patient?s/patient?s family?s questions on this issue have been answered. The patient has also been advised to contact this office for worsening conditions or problems, and seek emergency medical treatment and/or call 911 if the patient deems either necessary. Exam was conducted with the help of bedside nurse. Time spent in encounter 30 minutes with >50% time spent face to face. Coding Level of Care Code Acute Code for Chg Fwd Diagnoses Acute non-ST segment elevation myocardial infarction I21.4 Atherosclerosis of coronary artery of [place] heart without angina pectoris I25.10 Benign essential HTN I10 Dyslipidemia E78.5
[2022-03-24 13:06] LABS: Troponin 5 6HR 242.1 ng/L (0-15); Troponin 5 6HR Delta 233.1 ng/L (0-12)
--- NOTE | 2022-03-24 13:16 | USCV_ITS ---
Blas Cummings Age: 66 Gender: M : 1955 Exam Date: 03/24/2022 16:00 Ordering Phys: Bailey Linda MD Technologist: ADAMARIS Exam Location: [facility] [place] Indication: NSTEMI BP: 120 / 67 HR: 58 Rhythm: Sinus Technical Quality: Adequate MEASUREMENTS (Male / Female) Normal Values 2D ECHO LV Diastolic Diameter PLAX 4.8 cm 4.2 - 5.9 / 3.9 - 5.3 cm LV Systolic Diameter PLAX 3.9 cm IVS Diastolic Thickness 0.7 cm 0.6 - 1.0 / 0.6 - 0.9 cm IVS Systolic Thickness 0.8 cm LVPW Diastolic Thickness 0.7 cm 0.6 - 1.0 / 0.6 - 0.9 cm LVPW Systolic Thickness 1.0 cm LVOT Diameter 2.2 cm LV Ejection Fraction 2D Teich 38.0 % LV Ejection Fraction MOD 2C 52.0 % LV Ejection Fraction 2C AL 51.1 % LA Diameter 3.3 cm IVC Diameter 1.9 cm M-MODE Aortic Annulus Diameter 3.3 cm LA Ao Ratio MM 1.1 MV E Point Septal Separation 0.4 cm DOPPLER AV Peak Velocity 106.0 cm/s LVOT Peak Velocity 93.0 cm/s AV Area Cont Eq vti 3.6 cm squared AV Area Cont Eq pk 3.4 cm squared MV Area PHT 3.6 cm squared Mitral E to A Ratio 1.1 MV E' Velocity 59.5 cm/s Mitral E to MV E' Ratio 12.2 Mitral E to LV E' Lateral Ratio 9.7 Mitral E to LV E' Septal Ratio 16.5 TV Peak E Velocity 32.0 cm/s PV Peak Velocity 108.0 cm/s FINDINGS Left Ventricle Normal left ventricular size, systolic function and wall thickness, with no regional wall motion abnormalities. Left ventricular ejection fraction is estimated at 65 %. Normal diastolic function. Right Ventricle Normal right ventricular size and systolic function. Right Atrium Normal right atrial size. Left Atrium Normal left atrial size. Mitral Valve Structurally normal mitral valve. No mitral valve stenosis. Trace mitral valve regurgitation. Aortic Valve Structurally normal trileaflet aortic valve. No aortic valve stenosis. No aortic valve regurgitation. Tricuspid Valve Structurally normal tricuspid valve. No tricuspid valve stenosis. Trace tricuspid valve regurgitation. Pulmonic Valve Structurally normal pulmonic valve. No pulmonary valve stenosis. No significant pulmonary valve regurgitation. Pericardium No pericardial effusion. Aorta Normal size aortic root and proximal ascending aorta. IVC Normal IVC dimension with >50% respiratory change of the inferior vena cava. CONCLUSIONS 1. Normal left ventricular size, systolic function and wall thickness, with no regional wall motion abnormalities. Left ventricular ejection fraction is estimated at 65 %. Normal diastolic function. 2. Normal right ventricular size and systolic function. 3. No significant valvular abnormality. 4. No change when compared to study dated 07/23/2018. Shayla Lima MD (Electronically Signed) Final Date: 24 March 2022 23:10 S
[2022-03-24 13:57] LABS: Procalcitonin 0.06 ng/mL (0-0.5)
[2022-03-24 13:58] LABS: Cholesterol 184 mg/dL (0-200); HDL Cholesterol 40 mg/dL (60-100); LDL Cholesterol Calculated 116 mg/dL (50-129); Thyroid Stimulating Hormone 2.73 uIU/mL (0.27-4.20); Triglycerides 141 mg/dL (0-150)
[2022-03-24] MEDS: pantoprazole 40 mg SDV IVP (13:59)
[2022-03-24 14:19] LABS: Estmated Average Glucose 114; Hemoglobin A1C 5.6 % (4.0-6.0)
[2022-03-24] MEDS: acetaminophen 325 mg Tablet 650 MG PO (16:58)
[2022-03-24 17:25] LABS: Partial Thromboplastin Time 77.7 SECONDS (23.9-36.7)
[2022-03-24] MEDS: atorvastatin 40 mg Tablet 80 MG PO (20:44)
[2022-03-25] VITALS (101 sets, daily range): BP systolic 94–160; BP diastolic 54–98; PULSE 54–88; RESP 8–24; TEMP 36.6–37.1; O2SAT 92–100
[2022-03-25 00:13] LABS: Partial Thromboplastin Time 50.7 SECONDS (23.9-36.7)
[2022-03-25] MEDS: heparin 5,000 unit/mL INJ 1 mL IV (00:28)
[2022-03-25 04:57] LABS: Basophils % 0.5 %; Eosinophils # 0.3 10^3/uL (0.0-0.8); Eosinophils % 3.8 %; Hematocrit 42.2 % (42.0-52.0); Hemoglobin 13.7 g/dL (11.7-16.6); Lymphocytes # 1.8 10^3/uL (0.8-4.8); Mean Corpuscular HGB Conc 32.5 g/dL (30.0-36.0); Mean Corpuscular Hemoglobin 29.4 pg (28.0-34.0); Mean Corpuscular Volume 90.6 fl (80-94); Mean Platelet Volume 9.6 fL (7.4-10.4); Monocytes # 0.9 10^3/uL (0.2-0.9); Neutrophils # 5.79 10^3/uL (1.8-7.7); Neutrophils % 65.2 %; Nucleated Red Blood Cells % 0 %; Platelet Count 251 10^3/cmm (130-400); Red Blood Count 4.66 10^6/uL (4.1-5.3); Red Cell Distribution Width 13.4 % (12.1-15.1); White Blood Count 8.9 10^3/uL (4.0-10.0)
[2022-03-25 05:08] LABS: Alanine Aminotransferase 19 U/L (0-41); Albumin Level 3.8 g/dL (3.5-5.2); Alkaline Phosphatase 66 U/L (40-130); Anion Gap 13.9 (5-19); Aspartate Amino Transferase 64 U/L (0-40); Blood Urea Nitrogen 15 mg/dL (8-23); Calcium 8.6 mg/dL (8.5-10.5); Carbon Dioxide 24 mmol/L (22-29); Chloride 104 mmol/L (98-107); Globulin 2.7 g/dL (1.3-4.6); Glomerular Filtration Rate 96.7 mL/min (90-130); Glucose 104 mg/dL (65-115); Magnesium 1.8 mg/dL (1.7-2.3); Osmolality Calculated 287 mOsm/kg (285-295); Potassium 3.9 mmol/L (3.5-5.1); Sodium 138 mmol/L (136-145); Total Bilirubin 0.3 mg/dL (0.15-1.2); Total Protein 6.5 g/dL (6.6-8.7)
[2022-03-25] MEDS: acetaminophen 325 mg Tablet 650 MG PO ×3 (06:12→19:14)
[2022-03-25] MEDS: heparin drip 25,000 UNIT/500 ML PREMIX 25 UNIT IV (06:14)
[2022-03-25 06:48] LABS: Partial Thromboplastin Time 79.5 SECONDS (23.9-36.7)
--- NOTE | 2022-03-25 07:36 | W.PM.OPSUD ---
Surgery/Procedure H&P Update DATE OF PROCEDURE: March 25, 2022 DATE H&P PERFORMED: 03/24/22 H&P UPDATE INFORMATION: I have reviewed H&P completed within last 30 days, I have examined patient prior to procedure and No changes to prior documentation PLANNED PROCEDURE: Operation Date: 03/25/22 07:00 Proposed Procedures p Cardiac Catheterization(Left) - Yordan Gilbert M.D Possible percutaneous coronary intervention PATIENT REASSESSED PRIOR TO SEDATION, WITH NO CHANGE NOTED: Yes PHYSICAL EXAM: alert, oriented x 3, clear to auscultation bilaterally and regular rate & rhythm AIRWAY EVAL/ANESTHESIA PLAN: normal airway, ASA III, Local Anesthesia, Risks, benefits & alternatives of sedation and/or procedure discussed and Patient agrees to continue as planned ADDITIONAL INFORMATION: Moderate sedation
[2022-03-25] MEDS: sodium chloride 0.9% 1,000 ML 50 ML IV (08:42)
[2022-03-25] MEDS: aspirin 325 mg Tablet PO (08:49)
[2022-03-25 09:16] LABS: Partial Thromboplastin Time 26.3 SECONDS (23.9-36.7)
[2022-03-25] MEDS: metoprolol tartrate 25 mg Tablet 12.5 MG PO ×2 (09:21→20:47)
[2022-03-25] MEDS: amlodipine 5 mg Tablet 2.5 MG PO (09:58)
[2022-03-25] MEDS: clopidogrel 75 mg Tablet PO (09:58)
--- NOTE | 2022-03-25 11:00 | PC.NURSE ---
Femoral 6FR sheath pulled by this nurse at 1100, pressure held for 20mins. Patient tolerated well. Gauze and tegaderm applied to site, site noted to be free of hematoma. Patient noted to be hemodynamically stable and denies pain at this time.
--- NOTE | 2022-03-25 12:09 | PC.CHAP ---
Pastoral Care Encounter/Spiritual Assessment Type of Contact [] Declined barrel tester visit [] Patient/Family/Request visit [] Outpatient visit [] Follow-up visit [] Physician referral [] Code/Alert [x] Routine visit [] Staff referral [] Actively dying [] Patient sleeping [] Family support [] [] Out of room [] Palliative care [] [x] Receiving care in room [] Pre-surgical visit [] Trauma [] Long length of stay [] ICU visit [] Other: Relational/Emotional Strength [] Patient feels connected with others/family/visitors/staff [] Distress [] Loneliness/isolation [] Abandonment Spirituality of Patient [] Person of Zaria [] Attends Methodist of their Zaria [] Believes in Prayer [] Reads Bible or Gnosticism materials [] There are Spiritual issues to be addressed [employer]ins Yarn Examiner Interventions [] Prayer [] Active listening [] Non-anxious presence [] Spiritual/emotional support [] Crisis/trauma care [] Spiritual counseling [] Bereavement support [] Provided bereavement packet [] Provided Bible/devotional materials [] Provided toy/stuffed animal, coloring book to patient or family member [] Provided Communion [] Anointing/Breaks [] Salvation [] Completed spiritual assessment [] Other: Impact on Illness or Injury [] Angry [] Fearful [] Anxious [] Often cries [] Exhaustion [] Unable to work [] Unable to attend shinto [] Unable to walk/stand [] Unable to read [] Unable to drive [] Unable to eat/drink [] Unable to sleep [] Unable to be with family [] Patient intubated [] Other: Summary Time spent with patient
[2022-03-25] MEDS: pantoprazole 40 mg SDV IVP (12:16)
--- NOTE | 2022-03-25 13:15 | PM.PN ---
Subjective Subjective: Status post angiogram Patient is chest pain-free Most likely patient will be able to go home by tomorrow Vitals/I&O/Wt Last Vital Signs Temp 98.7 F 03/25/22 11:52 Pulse 65 03/25/22 12:00 Resp 20 H 03/25/22 12:00 BP 143/88 03/25/22 12:00 Pulse Ox 97 03/25/22 12:00 O2 Del Method 03/25/22 10:12 O2 Flow Rate 3 03/25/22 10:12 03/24/22 03/25/22 03/25/22 22:59 06:59 14:59 Intake Total 697.70 / 698.00 298.333 / 996.333 45.392 / 45.392 Output Total 600 / 600 375 / 375 Balance 697.70 / 698.00 -301.667 / 396.333 -329.608 / -329.608 Weight last 48 hrs Weight 89.868 kg Weight 86.183 kg Physical Exam Narrative: Patient is awake and alert Chest pain-free Euvolemic Pleasant and cooperative Currently on room air at the bedside Hemoglobin PERRLA Nonfocal neuro exam Data 03/25/22 02:54 03/25/22 02:54 A&P Assessment and plan (1) Acute non-ST segment elevation myocardial infarction: (2) Benign essential HTN: (3) Coronary artery disease: Plan NSTEMI Angiogram done patient to be managed medically Patient is chest pain-free stated that patient experienced hallucination and depression with Plavix and would not like to try that for now Patient to be managed medically as per cardiology Patient will be able to go home by tomorrow Patient can be transferred to [facility] if that is needed Full code Cardiac diet Plan to discharge tomorrow Attestations Medical Necessity Statement*: Continue medical management Time Spent in Patient Care: 30 Coding Level of Care Code Acute Code for g Fwd Diagnoses Acute non-ST segment elevation myocardial infarction I21.4 Benign essential HTN I10 Coronary artery disease I25.10
[2022-03-25 14:32] LABS: Partial Thromboplastin Time 25.7 SECONDS (23.9-36.7)
--- NOTE | 2022-03-25 16:46 | XACV_ITS ---
Exam Room: [facility] Ht: 170 cm Wt: 90 kg BSA: 2.09 m2 Gender: Male : 1955 Any Known Allergies: Other Exam Priority: Routine Procedure(s): Procedure Description: Diagnostic procedure Procedure Description: Venous Graft Catheterization Procedure Description: DHALIWAL Graft Catheterization Procedure Description: RENÉ Graft Catheterization Procedure Description: Coronary Angiography Diagnostic Cath Status: Urgent Diagnostic Findings * INDICATION: NSTEMI. * Left main artery: Patent. LAD: Has totally occluded prior stents. Left circumflex artery: Patent. RCA: Ostially occluded.. * SVG graft from Ascending Aorta to 1st Diagonal: total thrombotic occlusion in distal segement. , ALYSHA: 0 flow. Culptrit vessel for NSTEMI. * DHALIWAL to LAD: Patent RENÉ to RCA: Patent. * Coronary angiography shows right dominance. Conclusions 1. Left main artery: Patent. LAD: Has totally occluded prior stents. Left circumflex artery: Patent. RCA: Ostially occluded.. 2. Occluded SVG to Diagonal artery in the distal vessel with thrombus. This is culprit vessel for NSTEMI. Patent DHALIWAL to LAD and RENÉ to RCA.. 3. Patient has prior CABG. Recommendations * Medical therapy. * Antiplatelet therapy. * High intensity statin therapy. * Outpatient cardiology follow up in 1-2 weeks. Interventional RX Recommendation: medical therapy and/or counseling Diagnostic RX Recommendation: medical therapy and/or counseling Anticoagulation: Heparin Pressures Phase:Rest AO : 132 / 67 ( 95 ) @ 7:47:00 AM 131 / 72 ( 95 ) @ 7:52:00 AM Clinical Evaluation EBL: 5mL-10mL Procedural Details Procedure Consent Obtained. Admit Source: In Patient. Pre-Procedure Time Out. Identified patient by full name and date of as verbalized by the patient/guarantor. Does the consent match the physician's order: Yes. Accurate & Complete Informed Consent: Yes. Inpatient/Outpatient History & Physical on Chart: Yes. If H&P is completed, is and addenduem needed: No; If yes, is the addendum complete: N/A. Visualize and Verify Site with Patient/Guarantor: N/A. Relevant Radiology Images available: N/A. The risks, benefits, and alternatives of sedation and/or procedure were discussed by physician. The patient agrees to continue. Procedure started. [facility] Clinical Fraility Score: 3: Managing Well. Product Marketer Indications: ACS > 24 hours. Chest Pain Symptom Assessment: Typical Angina Symptoms. Correct patient, site and procedure confirmed by cath team. Current diagnosis: NSTEMI. PERRLA. Strong, equal hand director of medical education bilaterally. Lungs clear x 5 lobes. IV Site on Arrival: 20 gauge in the right hand. IV Site on Arrival: 18 gauge in the left anticubital. IV Fluids: 0.9% NaCl at 75ml/hr. 0 mL infused prior to lab specialist. Pre Procedural Pulses: bilateral dorsalis pedis was 3+. Pre Procedural Pulses: bilateral posterior tibial was 3+. Oxygen started at 2liters/min via nasal canula. Physician arrived. Baseline sample Acquired. HR: 75 BPM. bilateral groins was prepped with chloroprep then draped in the usual sterile fashion. Physician scrubbed in. Immediate Pre-Procedure Time Out. Correct Patient: Yes; Correct Procedure: Yes; Correct Site: Yes; Correct Patient Position: Yes; Correct Supplies: Yes; Dried Flammable Prep: Yes; Blood Products Available: No;. Lidocaine 1% infiltrated to the right groin. An attempt to gain access to the right femoral artery was unsuccessful. Manual pressure was held as needed to stop the bleeding. Arterial access obtained with micropuncture set. A 5 singaporean JL4 catheter in over wire. Multiple views taken of left coronary artery. Catheter removed over the standard wire. A 5 singaporean JR4 catheter in over wire. Catheter redirected to the RCA. SVG's to Diaganol visualized and occluded. Catheter redirected to right subclavian. RENÉ to RCA visualized and patent. Catheter redirected to left subclavian. DHALIWAL to LAD visualized. Glidewire advanced through the catheter for repostioning of catheter. DHALIWAL to LAD visualized. Catheter removed over the standard wire. Physician scrubbed out. A Suture was successful obtaining hemostatsis at the Right Femoral artery insertion site. Sheath(s) sutured into position with 2-0 silk and sterile 4x4's and Op-site applied over the site. No oozing or signs and symptoms of hematoma noted. Arterial sheath flushed and connected to tranducer and pressure bag with heparinized saline. Post Procedure: Pulses reassessed and unchanged. PERRLA. Strong, equal hand director of medical education bilaterally. No VTE prophylaxis required. Medication's Wasted: Heparin = 4000 unit. Total IV fluids: 75 mL. Post-op diagnosis: SVG to Diagonal occluded, Patent RENÉ to RCA, Patent DHALIWAL to LAD. Patent eyak circumflex. Complications: None. Estimated blood loss: 5mL-10mL. Responsiveness - Normal response to verbal stimuli; alert and oriented, PERRLA. Airway - Unaffected, no intervention required; spontaneous ventilation. Circulation: W/N/L, pulses unchanged. Nausea/Vomiting: N/A. Procedure completed. Patient transferred by bed to ICU. Vital chart was stopped. Access Site Site: Right Femoral artery Sheath Size: 6 Fr Hemostasis Method: Suture Hemostasis Success: Successful Procedure Medications Start: 7:32 AM Stop: 7:32 AM Medication: Zofran (ondansetron) Amount: 4 mg Route: I.V. Start: 7:34 AM Stop: 7:34 AM Medication: Diphendryamine Amount: 50 mg Route: I.V. Start: 7:40 AM Stop: 7:40 AM Medication: Versed Amount: 1 mg Start: 7:40 AM Stop: 7:40 AM Medication: Fentanyl Amount: 50 mcg Route: I.V. Start: 7:42 AM Stop: 7:42 AM Medication: Versed Amount: 1 mg Start: 8:01 AM Stop: 8:01 AM Medication: Fentanyl Amount: 50 mcg Route: I.V. I, the attending physician, have reviewed and verified all procedure medications. Yes, all medications given per verbal order History/Risk Factors Hypertension: Yes Dyslipidemia: Yes Peripheral Arterial Disease (PAD): No Myocardial Infarction (SD): Yes Obesity: No Renal Disease: No Tobacco Use: Former Prior Interventions PCI: Yes CABG: Yes Valve Surgery: No Date of PCI: 02/19/2016 Report Signatures Finalized by Yordan Gilbert MD on 04/03/2022 11:26 AM
[2022-03-25 17:01] LABS: Rapid Strep A Test Negative (Negative)
--- NOTE | 2022-03-25 17:27 | PC.NURSE ---
received into room 111-1 via w/c from icu at 1715.report received.pt is alert and oriented x 4.sr on monitor.denies pain at present.right groin incision with dressing dry and intact.no hematoma noted.right leg is warm to touch and with brisk capillary refill.pt is off of 6 hr post cath bedrest .oriented to room environment.instructed to notify staff for any chest pain,numbness,sob or any concerns or needs at all.pt verb understanding of instructions
--- NOTE | 2022-03-25 17:47 | PC.NURSE ---
Report called to CSU nurse, Nakia. Patient transferred to CSU via wheelchair by this nurse to room 111-1. Nakia noted to be at bedside at time of transfer. Patient denies pain and noted to be A&Ox4 at time of transfer.
[2022-03-25 18:50] LABS: Adenovirus Not Detected (NOT DETECT); Chlamydia Pneumoniae Not Detected (NOT DETECT); Coronavirus 229E,HKU1,NL63,OC4 Not Detected (NOT DETECT); Human Metapneumovirus Not Detected (NOT DETECT); Human Rhinovirus/Enterovirus Not Detected (NOT DETECT); Influenza A Not Detected (NOT DETECT); Influenza A H1 Not Detected (NOT DETECT); Influenza A H1-2009 Not Detected (NOT DETECT); Influenza A H3 Not Detected (NOT DETECT); Influenza B Not Detected (NOT DETECT); Mycoplasma Pneumoniae Not Detected (NOT DETECT); Parainfluenza Virus Type 1 Not Detected (NOT DETECT); Parainfluenza Virus Type 2 Not Detected (NOT DETECT); Parainfluenza Virus Type 3 Not Detected (NOT DETECT); Parainfluenza Virus Type 4 Not Detected (NOT DETECT); Respiratory Syncytial Virus A Not Detected (NOT DETECT); Respiratory Syncytial Virus B Not Detected (NOT DETECT); SARS-COV-2 Not Detected (NOT DETECT)
[2022-03-25] MEDS: guaiFENesin-dextromethorphan UDC 10 mL PO (20:47)
[2022-03-25] MEDS: atorvastatin 40 mg Tablet PO (20:47)
--- NOTE | 2022-03-26 03:45 | PC.NURSE ---
Patient had a 14 beat run of vtach, asymptomatic. Resume SR with HR 72 and BP 126/68. The patient did not have any labs ordered for the morning. Spoke with and she ordered a CMP and Magnesium STAT.
[2022-03-26 04:00] VITALS: BP 133/68; PULSE 75; RESP 23; TEMP 36.6; O2SAT 97
[2022-03-26 04:54] LABS: Alanine Aminotransferase 19 U/L (0-41); Albumin Level 3.8 g/dL (3.5-5.2); Alkaline Phosphatase 75 U/L (40-130); Anion Gap 14.2 (5-19); Aspartate Amino Transferase 37 U/L (0-40); Blood Urea Nitrogen 16 mg/dL (8-23); Calcium 8.4 mg/dL (8.5-10.5); Carbon Dioxide 24 mmol/L (22-29); Chloride 105 mmol/L (98-107); Glomerular Filtration Rate 84.4 mL/min (90-130); Glucose 117 mg/dL (65-115); Magnesium 1.8 mg/dL (1.7-2.3); Osmolality Calculated 290 mOsm/kg (285-295); Potassium 4.2 mmol/L (3.5-5.1); Sodium 139 mmol/L (136-145); Total Bilirubin 0.3 mg/dL (0.15-1.2); Total Protein 6.8 g/dL (6.6-8.7)
[2022-03-26 06:00] VITALS: PULSE 73
[2022-03-26] MEDS: guaiFENesin-dextromethorphan UDC 10 mL PO (06:00)
[2022-03-26] MEDS: acetaminophen 325 mg Tablet 650 MG PO ×2 (06:02→10:03)
[2022-03-26 07:55] VITALS: BP 151/89; PULSE 69; RESP 12; TEMP 36.5; O2SAT 98
[2022-03-26 08:00] VITALS: PULSE 62; RESP 16; O2SAT 94
[2022-03-26] MEDS: metoprolol tartrate 25 mg Tablet 12.5 MG PO (09:47)
[2022-03-26] MEDS: clopidogrel 75 mg Tablet PO (09:47)
[2022-03-26] MEDS: amlodipine 5 mg Tablet 2.5 MG PO (09:48)
--- NOTE | 2022-03-26 10:03 | P.PN_ITS ---
Subjective Subjective: s/p LHC with occluded SVG to diagonal not amenable to intervention. Medical management recommended. Patent DHALIWAL to LAD, RENÉ to RCA and [place] LCx. He feels well and denies any CP, SOb; 14 beats long run of NSVT overnight Medications: Reviewed: Yes Vitals/I&O/Wt Last Vital Signs Temp 97.7 F 03/26/22 07:55 Pulse 62 03/26/22 08:00 Resp 16 03/26/22 08:00 BP 151/89 03/26/22 07:55 Pulse Ox 94 03/26/22 08:00 O2 Del Method 03/26/22 08:00 O2 Flow Rate 3 03/25/22 10:12 03/25/22 03/26/22 03/26/22 22:59 06:59 14:59 Intake Total 580 / 531.513 5686 / 2105.392 480 / 480 Output Total 450 / 1000 250 / 1250 Balance 130 / -14.608 870 / 855.392 480 / 480 Weight last 48 hrs Weight 198 lb 2 oz Physical Exam Narrative: Gen: NAD, sitting comfortably in chair HEENT: EOMI, no pallor or icterus RS: CTAB/L; No wheezes or rales CVS: S1, S2 regular. 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 -Normal LV function on echo -c/o headache with NTG gtt; started on low dose amlodipine stable to be discharged home from cardiac standpoint. -f/u with Raquel in 1 week for post Cath follow up. (2) Atherosclerosis of coronary artery of [place] heart without angina pectoris: s/p stents and CABGx 3 (3) Benign essential HTN: BP/HR log x 1 week (4) Dyslipidemia: Plan GERD NSVT: increase metoprolol to 25 mg BID Patient seen today via Telehealth by agreement and consent of patient. Telehealth technology used during the visit include video and audio. The patient has been advised of the potential risks and limitations of this mode of treatment (including but not limited to the absence of in-person examination) and has agreed to be treated in a remote fashion in spite of them. Any and all of the patient?s/patient?s family?s questions on this issue have been answered. The patient has also been advised to contact this office for worsening conditions or problems, and seek emergency medical treatment and/or call 911 if the patient deems either necessary. Exam was conducted with the help of bedside nurse. Time spent in encounter 20 minutes with >50% time spent face to face. Attestations Medical Necessity Statement*: stable to be discahregd Coding Level of Care Code Acute Code for g Fwd Diagnoses Acute non-ST segment elevation myocardial infarction I21.4 Atherosclerosis of coronary artery of [place] heart without angina pectoris I25.10 Benign essential HTN I10 Dyslipidemia E78.5
--- NOTE | 2022-03-26 10:27 | P.DS_ITS ---
Discharge Providers Date of Admission: 03/24/22 11:56 Date of Discharge: March 26, 2022 Attending Provider at Admission: Bailey Linda MD Attending Provider at Discharge: Sushil Goff MD Primary Care Provider: Facundo Forman DO Diagnoses at Discharge Discharge Diagnosis (1) Acute non-ST segment elevation myocardial infarction: Status: Acute (2) Atherosclerosis of coronary artery of [place] heart without angina pectoris: Status: Acute (3) Benign essential HTN: Status: Acute (4) Dyslipidemia: Status: Acute Reason for Visit Reason for Visit: CP Hospital Course Hospital Course 66-year-old male who was admitted for management evaluation of symptoms related to NSTEMI, cardiology recommended coronary angiogram which revealed Mejia to LAD, Patent RENÉ to RCA, patent [place] cricumflex, , culprit vessel was svg to diagonal artery. Normal LVEF. Medical management was recommended, he will get aspirin, statin, toprol, Brilinta was prescribed by myself because he is reporting some allergies to Plavix(hallucination and depression) however Dr. Chaudhari has prescribed Plavix for now. Physical Exam Narrative: Awake and alert S1, S2 Abdomen soft Pleasant cooperative Doing well on room air Discharge Data Studies Completed and Pending Completed Studies During Hospitalization Category Date Time Status CT angio chest PE protcl [id number] Stat Cat Scan 03/24/22 06:30 Completed XR chest 1V portable [id number] Stat Exams 03/24/22 05:43 Completed CV. echo complete* [id number] Stat Ultrasound 03/24/22 13:16 Completed Pending at discharge Category Date Time Status COMMUNITY SUPPORT PROFESSIONAL request for service Routine Exams 03/25/22 16:46 Taken Platelet Count Q2D Lab 03/28/22 04:00 Ordered Streptococcus Culture Group A Stat Lab 03/25/22 16:25 Received Radiology Impressions Chest X-Ray 03/24/22 05:43 IMPRESSION: No acute finding. Chest CTA 03/24/22 06:30 IMPRESSION: 1. No pulmonary artery embolism identified. 2. Limitations in assessment of aortic pathology as above due to bolus timing. 3. Coronary atherosclerosis. 4. Noncalcified left lower lobe pulmonary nodule. For patients at low risk (minimal or absent history of smoking and of other known risk factors), no routine follow-up is indicated. For patients at high risk (history of smoking or of other known risk factors), consider optional CT at 12 months. (Sushma et al., Fleischner Society, 2017). Laboratory Results WBC 8.9 10^3/uL (4.0-10.0) 03/25/22 02:54 RBC 4.66 10^6/uL (4.1-5.3) 03/25/22 02:54 Hgb 13.7 g/dL (11.7-16.6) 03/25/22 02:54 Hct 42.2 % (42.0-52.0) 03/25/22 02:54 MCV 90.6 fl (80-94) 03/25/22 02:54 MCH 29.4 pg (28.0-34.0) 03/25/22 02:54 MCHC 32.5 g/dL (30.0-36.0) 03/25/22 02:54 RDW 13.4 % (12.1-15.1) 03/25/22 02:54 Plt Count 251 10^3/cmm (130-400) 03/25/22 02:54 MPV 9.6 fL (7.4-10.4) 03/25/22 02:54 Neut % (Auto) 65.2 % 03/25/22 02:54 Lymph % (Auto) 20.0 % 03/25/22 02:54 [place] % (Auto) 10.0 % 03/25/22 02:54 Eos % (Auto) 3.8 % 03/25/22 02:54 Baso % (Auto) 0.5 % 03/25/22 02:54 Neut # (Auto) 5.79 10^3/uL (1.8-7.7) 03/25/22 02:54 Lymph # (Auto) 1.8 10^3/uL (0.8-4.8) 03/25/22 02:54 [place] # (Auto) 0.9 10^3/uL (0.2-0.9) 03/25/22 02:54 Eos # (Auto) 0.3 10^3/uL (0.0-0.8) 03/25/22 02:54 Baso # (Auto) 0.0 10^3/uL (0.0-0.1) 03/25/22 02:54 Nucleated RBC % (auto) 0 % 03/25/22 02:54 Nucleated RBCs # 0.0 /100WBC 03/25/22 02:54 ESR 18 mm/hr (0-10) H 03/24/22 06:01 APTT 25.7 SECONDS (23.9-36.7) 03/25/22 14:13 Sodium 139 mmol/L (136-145) 03/26/22 03:48 Potassium 4.2 mmol/L (3.5-5.1) 03/26/22 03:48 Chloride 105 mmol/L (98-107) 03/26/22 03:48 Carbon Dioxide 24 mmol/L (22-29) 03/26/22 03:48 Anion Gap 14.2 (5-19) 03/26/22 03:48 BUN 16 mg/dL (8-23) 03/26/22 03:48 Creatinine 0.9 mg/dL (0.7-1.2) 03/26/22 03:48 GFR Calculation 84.4 mL/min (90-130) L 03/26/22 03:48 Glucose 117 mg/dL (65-115) H 03/26/22 03:48 Estimat Average Glucose 114 03/24/22 06:01 Hemoglobin A1c 5.6 % (4.0-6.0) 03/24/22 06:01 Calculated Osmolality 290 mOsm/kg (285-295) 03/26/22 03:48 Calcium 8.4 mg/dL (8.5-10.5) L 03/26/22 03:48 Magnesium 1.8 mg/dL (1.7-2.3) 03/26/22 03:48 Total Bilirubin 0.3 mg/dL (0.15-1.2) 03/26/22 03:48 AST 37 U/L (0-40) 03/26/22 03:48 ALT 19 U/L (0-41) 03/26/22 03:48 Alkaline Phosphatase 75 U/L (40-130) 03/26/22 03:48 Troponin T Baseline 9 ng/L (0-15) 03/24/22 06:01 Troponin T 120 Minute 104.7 ng/L (0-15) H 03/24/22 08:10 Delta Troponin T 95.7 ABS# (0-10) H* 03/24/22 08:10 Troponin T Hi Sens 6Hr 242.1 ng/L (0-15) H 03/24/22 12:09 Troponin T Hi Sens 6Hr Delta 233.1 ng/L (0-12) H* 03/24/22 12:09 NT-Pro-B Natriuret Pep 101 pg/mL (0-125) 03/24/22 06:01 Total Protein 6.8 g/dL (6.6-8.7) 03/26/22 03:48 Albumin 3.8 g/dL (3.5-5.2) 03/26/22 03:48 Globulin 3.0 g/dL (1.3-4.6) 03/26/22 03:48 Triglycerides 141 mg/dL (0-150) 03/24/22 06:01 Cholesterol 184 mg/dL (0-200) 03/24/22 06:01 LDL Cholesterol, Calc 116 mg/dL (50-129) 03/24/22 06:01 HDL Cholesterol 40 mg/dL (60-100) L 03/24/22 06:01 LDL/HDL Ratio 2.90 RATIO (0.00-3.22) 03/24/22 06:01 Cholesterol/HDL Ratio 4.60 mg/dL (1.0-5.00) 03/24/22 06:01 Procalcitonin 0.06 ng/mL (0-0.5) 03/24/22 06:01 TSH 2.73 uIU/mL (0.27-4.20) 03/24/22 06:01 Nasal Influ A H1 2008 PCR Not detected (NOT DETECT) 03/24/22 06:45 Coronavirus 229E (PCR) Not detected (NOT DETECT) 03/25/22 16:25 Influenza A (H1) PCR Not detected (NOT DETECT) 03/24/22 06:45 Influenza A (H3) PCR Not detected (NOT DETECT) 03/24/22 06:45 Influenza Type A Ag Cancelled 03/24/22 06:45 Influenza Type A (PCR) Not detected (NOT DETECT) 03/24/22 06:45 Influenza Type B Ag Cancelled 03/24/22 06:45 Influenza Type B (PCR) Not detected (NOT DETECT) 03/24/22 06:45 SARS-CoV-2 (PCR) Not detected (NOT DETECT) 03/25/22 16:25 Group A Strep Rapid Negative (Negative) 03/25/22 16:25 Vitals Last Vital Signs Temp 97.7 F 03/26/22 07:55 Pulse 62 03/26/22 08:00 Resp 16 03/26/22 08:00 BP 151/89 03/26/22 07:55 Pulse Ox 94 03/26/22 08:00 O2 Del Method 03/26/22 08:00 O2 Flow Rate 3 03/25/22 10:12 Discharge Plan Discharge Patient Disposition: Home Condition: Stable Prescriptions: New aspirin 81 mg Tablet,Delayed Release (Dr/Ec) 81 mg PO DAILY Qty: 120 3RF atorvastatin 40 mg Tablet 40 mg PO BEDTIME Qty: 60 2RF amlodipine 5 mg tablet 5 mg PO DAILY Qty: 60 0RF dextromethorphan-guaifenesin 10-200 mg capsule 1 tab-cap PO Q8H PRN (Reason: cough) Qty: 20 0RF clopidogrel 75 mg Tablet 75 mg PO DAILY Qty: 90 1RF metoprolol succinate 25 mg tablet extended release 24 hr 25 mg PO BID Qty: 60 3RF nitroglycerin 0.4 mg Tablet, Sublingual 0.4 mg sublingual Q5M PRN (Reason: Chest Pain) Qty: 30 3RF Continued magnesium oxide 400 mg magnesium capsule 400 mg PO DAILY PRN (Reason: Pain) hydrocodone-acetaminophen 5-325 mg tablet 1 tab PO BID PRN (Reason: Renal colic) 5 Days Qty: 10 0RF Rx Instructions: Only for active renal colic fluticasone propionate [Flonase Allergy Relief] 50 mcg/actuation spray,suspension 1 spray intranasal DAILY Rx Instructions: administer into each nostril tramadol 50 mg tablet 50 mg PO TID PRN (Reason: Pain) omeprazole 40 mg capsule,delayed release(DR/EC) 40 mg PO DAILY Qty: 90 0RF Discontinued lovastatin 40 mg tablet extended release 24 hr 40 mg PO DAILY PRN (Reason: CHOLESTEROL) aspirin 325 mg tablet 325 mg PO DAILY PRN (Reason: Pain) metoprolol succinate 25 mg tablet extended release 24 hr 6.25 mg PO DAILY PRN (Reason: HEARTRATE) sildenafil 50 mg tablet 50 mg PO .prn Discharge Orders: Discharge Order (Routine); Ordered 03/26/22 Ordered By: Sushil Goff Referrals: Raquel Simon FNP [Nurse Practitioner] - 04/03/22 1:00 pm Facundo Forman DO [Primary Care Provider] - 03/28/22 11:00 am Discharge Activity: Limit activity as instructed Patient Instructions: Metoprolol (By mouth) (Lopressor, Toprol XL), Aspirin (By mouth) ([place] Extra Strength, [place] Aspirin Children's,..., Dextromethorphan (By mouth) (Children's Robitussin Cough Long..., Amlodipine (By mouth) (Hypertenipine-2.5, Norvasc, Norliqva), Atorvastatin (By mouth) (Lipitor), Opioid Safety Activity Restrictions/Additional Instructions: Do not lift anything more than 5 lbs for 1 week. Keep the site dry and clean Take medications as prescribed and follow up as scheduled. Discharge Attestations Time Spent in Discharge Care*: less than 30 min Quality Metrics Clinical Quality Measures [ No reported AMI, CVA or VTE this stay] Coding Level of Care Code Acute Chg FW DC note Diagnoses Acute non-ST segment elevation myocardial infarction I21.4 Atherosclerosis of coronary artery of [place] heart without angina pectoris I25.10 Benign essential HTN I10 Dyslipidemia E78.5
[2022-03-26 10:49] VITALS: PULSE 62; RESP 16; O2SAT 94
== END 2022-03-26 11:19 | disposition home or self-care (01) | DRG 281 ==
LOC: ER 12:03 → ICU 16:00 → CSU 03-25 17:09
PROVIDERS: Emergency Medicine; Family Medicine; Internal Medicine; Student in an Organized Health Care Education/Training Program; Admitting Provider Internal Medicine; Emergency Provider Emergency Medicine; PCP Electrodiagnostic Medicine; Visit Provider Internal Medicine
PROC: B2121ZZ Fluoroscopy of Single Coronary Artery Bypass Graft using Low Osmolar Contrast (ICD-10-PCS; principal; 2022-03-25 07:00)
DX: I21.4 Non-ST elevation (NSTEMI) myocardial infarction (principal); I25.810 Atherosclerosis of coronary artery bypass graft(s) without angina pectoris; T82.855A Stenosis of coronary artery stent, initial encounter; Y71.1 Therapeutic (nonsurgical) and rehabilitative cardiovascular devices associated with adverse incidents; I25.10 Atherosclerotic heart disease of native coronary artery without angina pectoris; I10 Essential (primary) hypertension; E78.5 Hyperlipidemia, unspecified; K21.9 Gastro-esophageal reflux disease without esophagitis; R00.0 Tachycardia, unspecified; Z95.1 Presence of aortocoronary bypass graft; Z95.5 Presence of coronary angioplasty implant and graft; Z87.442 Personal history of urinary calculi; Z87.891 Personal history of nicotine dependence; Z79.82 Long term (current) use of aspirin; Z79.891 Long term (current) use of opiate analgesic
CPT/HCPCS: 36415; 71045; 71275; 80053; 80061; 83036; 83735; 83880; 84145; 84443; 84484; 85025; 85651; 85730; 87081; 87631; 87635; 87880; 93005; 93306; 93455; 94664; 96365; 96366; 96367; 96375; 99152; 99153; 99285; C1769; C1887; C1894; C9113; J1200; J1644; J2250; J2270; J2405; J3010; J3490; J7030; Q9967

== ENCOUNTER → 2022-04-03 12:56 | Outpatient (BNVA) | payer MEDICARE, SELFPAY | PROVIDERS: PCP Electrodiagnostic Medicine; Visit Provider Nurse Practitioner Family | DX: I25.10 Atherosclerotic heart disease of native coronary artery without angina pectoris (principal); Z12.5 Encounter for screening for malignant neoplasm of prostate; I10 Essential (primary) hypertension; Z87.891 Personal history of nicotine dependence; Z95.1 Presence of aortocoronary bypass graft | CPT/HCPCS: 36415; 80048; 84153; 99214 ==

== ENCOUNTER → 2022-09-04 09:10 | Outpatient (BNVA) | payer MEDICARE, OTHER, SELFPAY | PROVIDERS: PCP Electrodiagnostic Medicine; Visit Provider Nurse Practitioner Family | DX: I10 Essential (primary) hypertension (principal); I25.10 Atherosclerotic heart disease of native coronary artery without angina pectoris; Z87.891 Personal history of nicotine dependence | CPT/HCPCS: 99214 ==

== ENCOUNTER 2022-09-23 08:54 | Inpatient (IN) | payer MEDICARE, OTHER, SELFPAY ==
[2022-09-23] VITALS (24 sets, daily range): BP systolic 143–170; BP diastolic 86–110; PULSE 59–89; RESP 13–25; TEMP 36.4–36.6; O2SAT 95–98; BMI 30.5
--- NOTE | 2022-09-23 09:02 | ECG_ITS ---
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 Measurements Intervals [place]ar Rate: 72 P: 43 GA: 177 QRS: 50 QRSD: 85 T: 59 QT: 350 QTc: 383 Interpretive Statements SINUS RHYTHM SEPTAL MYOCARDIAL INFARCTION , PROBABLY OLD [40+ ms Q WAVE IN V1/V2] Compared to ECG 03/24/2022 12:02:33 Myocardial infarct finding now present Electronically Signed On 09-23-2022 21:10:21 CDT by Shayla Lima M.D. [email or web address]
--- NOTE | 2022-09-23 09:11 | W.ED.CHESTPA ---
HPI - Chest Pain General: Chief Complaint: Chest Pain Stated Complaint: chest pain Time Seen by Provider: 09/23/22 09:03 Source: patient Mode of arrival: ambulatory History of Present Illness: 67-year-old male presents emergency room complaining of chest pain. First had chest pain around 2 AM it woke him up with pain radiating to the left arm and some shortness of breath. He had diaphoresis. Took a sublingual nitro and it improved. He went back to sleep but when he woke up he was still having some vague discomfort. Prior to the episode tonight he did had some discomfort but not to this extent. No chest pain with exertion. At the time he seen him in the room he is denying any discernible chest pain. Does have a known history of coronary artery disease. MD complaint: chest pain Pertinent past history: coronary artery disease Onset (ago): hour(s) Timing of current episode: episodic Onset: during rest Pain location: left chest Pain radiation: left arm Quality: aching and heaviness Relieving factors: nitroglycerin Associated symptoms: Deny abdominal pain, diaphoresis, dyspnea, fever(s), leg edema, nausea, palpitations, sense of impending doom, syncope or vomiting Review of Systems Const: Denies: fever(s), chills or diaphoresis ENMT: Denies: throat pain, ear or mastoid pain, nasal discharge or nasal congestion Card: Reports: chest pain; Denies: palpitations, irregular heart rhythm, edema or syncope Resp: Denies: dyspnea, productive cough or non-productive cough GI: Denies: abdominal pain, nausea or vomiting : Denies: flank pain, dysuria, urinary frequency or urinary urgency Skin/Breast: Denies: rash or pruritus PFSH ED PFSH: Medical History Acute non-ST segment elevation myocardial infarction Atherosclerosis of coronary artery of [place] heart without angina pectoris 03/25/2022: occluded SVG to diagonal, not amenable to intervention. Patent DHALIWAL to LAD, RENÉ to RCA and [place] left circumflex. Benign essential HTN Dyslipidemia Erectile dysfunction Renal calculus, right Surgical History H/O wrist surgery History of extraction of renal calculus History of hernia surgery Status post coronary artery bypass graft Status post coronary artery stent placement Family History Father , AT AGE 52 CEREBRAL HEMORRHAGE Stroke Mother , AT AGE 90 ALZHEIMERS Anesthesia complication CAD (coronary artery disease), Onset Age: 60 enlarged heart Dementia Brother Anesthesia complication CAD (coronary artery disease), Onset Age: 60 stents Sister Anesthesia complication Grandfather Cancer Grandmother Cancer Denies family history of Diabetes Clotting disorder Chronic kidney disease (CKD) Suicide Bleeding disorder Lung disease Social History Smoking and tobacco status: former smoker Alcohol intake: never Substance/Drug Use: never Adopted: No Caregiver/support person: No Marital status: Current occupational status: employed Physical Exam Const: GENERAL APPEARANCE: cooperative and comfortable ORIENTATION/CONSCIOUSNESS: Yes awake, Yes oriented to person, Yes oriented to place and Yes oriented to time HENMT: COMMON NORMALS: normocephalic, atraumatic and hearing grossly normal bilaterally HEAD & SCALP: normocephalic and atraumatic Resp: COMMON NORMALS: normal respiratory effort, No retractions, No use of accessory muscles and clear to auscultation bilaterally AUSCULTATION: clear to auscultation bilaterally Cardio: COMMON NORMALS: regular rate, regular rhythm and No murmurs present (Cardio) RATE: regular rate RHYTHM: regular rhythm GI: COMMON NORMALS: Soft to palpation and No hepatosplenomegaly present AUSCULTATION: Yes normoactive bowel sounds PALPATION: Yes Soft to palpation, No Tenderness to palpation present (GI), No Guarding due to palpation present (GI) and Yes No hepatosplenomegaly present Extremity: COMMON NORMALS: normal to inspection, capillary refill normal, no clubbing, cyanosis or edema, no calf tenderness and no pedal edema Neuro: SENSORIUM/ORIENTATION: Yes oriented to person, Yes oriented to place and Yes oriented to time Skin: COMMON NORMALS: no rashes or lesions noted GENERAL SKIN EXAM: no rashes or lesions noted Course Vital Signs: Vital signs: Vital Signs Temperature 97.7 F 09/25/22 04:00 Pulse Rate 62 09/25/22 05:01 Respiratory Rate 16 09/25/22 04:00 Blood Pressure 116/81 09/25/22 04:00 Pulse Oximetry 98 09/25/22 04:00 Oxygen Delivery Me thod Room Air 09/25/22 04:00 MDM - Chest Pain Medical Decision Making EKG shows no acute ST changes. Positive delta troponin. Patient remains pain-free. Nitroglycerin and heparin started. We will admit discussed with hospitalist cardiology consulted. Medical Records I reviewed the patient's medical records. Lab Data I reviewed the patient's lab results. 09/25/22 04:55 09/24/22 02:55 Radiology Impressions Chest X-Ray 09/23/22 10:23 IMPRESSION: No acute cardiopulmonary disease. Laboratory Results WBC 5.8 10^3/uL (4.0-10.0) 09/23/22 09:29 RBC 5.34 10^6/uL (4.1-5.3) H 09/23/22 09:29 Hgb 15.8 g/dL (11.7-16.6) 09/23/22 09:29 Hct 47.7 % (42.0-52.0) 09/23/22 09:29 MCV 89.3 fl (80-94) 09/23/22 09:29 MCH 29.6 pg (28.0-34.0) 09/23/22 09:29 MCHC 33.1 g/dL (30.0-36.0) 09/23/22 09:29 RDW 13.3 % (12.1-15.1) 09/23/22 09:29 Plt Count 290 10^3/cmm (130-400) 09/23/22 09:29 MPV 9.2 fL (7.4-10.4) 09/23/22 09:29 Neut % (Auto) 56.2 % 09/23/22 09:29 Lymph % (Auto) 29.7 % 09/23/22 09:29 [place] % (Auto) 8.2 % 09/23/22 09:29 Eos % (Auto) 4.9 % 09/23/22 09:29 Baso % (Auto) 0.7 % 09/23/22 09:29 Neut # (Auto) 3.24 10^3/uL (1.8-7.7) 09/23/22 09:29 Lymph # (Auto) 1.7 10^3/uL (0.8-4.8) 09/23/22 09:29 [place] # (Auto) 0.5 10^3/uL (0.2-0.9) 09/23/22 09:29 Eos # (Auto) 0.3 10^3/uL (0.0-0.8) 09/23/22 09:29 Baso # (Auto) 0.0 10^3/uL (0.0-0.1) 09/23/22 09:29 Nucleated RBC % (auto) 0 % 09/23/22 09: Nucleated RBCs # 0.0 /100WBC 09/23/22 09:29 APTT 27.2 SECONDS (23.9-36.7) 09/23/22 09:29 Sodium 137 mmol/L (136-145) 09/23/22 09: Potassium 4.1 mmol/L (3.5-5.1) 09/23/22 09: Chloride 104 mmol/L (98-107) 09/23/22 09: Carbon Dioxide 23 mmol/L (22-29) 09/23/22 09:29 Anion Gap 14.1 (5-19) 09/23/22 09:29 BUN 19 mg/dL (8-23) 09/23/22 09:29 Creatinine 1.0 mg/dL (0.7-1.2) 09/23/22 09:29 GFR Calculation 74.5 mL/min (90-130) L 09/23/22 09:29 Glucose 119 mg/dL (65-115) H 09/23/22 09:29 Calculated Osmolality 287 mOsm/kg (285-295) 09/23/22 09:29 Calcium 9.2 mg/dL (8.5-10.5) 09/23/22 09:29 Total Bilirubin 0.4 mg/dL (0.15-1.2) 09/23/22 09:29 AST 17 U/L (0-40) 09/23/22 09:29 ALT 20 U/L (0-41) 09/23/22 09:29 Alkaline Phosphatase 69 U/L (40-130) 09/23/22 09:29 Troponin T Baseline 40 ng/L (0-15) H 09/23/22 09:29 Troponin T 120 Minute 79.22 ng/L (0-15) H 09/23/22 11:33 Delta Troponin T 39.22 ABS# (0-10) H* 09/23/22 11:33 NT-Pro-B Natriuret Pep 139 pg/mL (0-125) H 09/23/22 09:29 Total Protein 7.1 g/dL (6.6-8.7) 09/23/22 09:29 Albumin 4.3 g/dL (3.5-5.2) 09/23/22 09:29 Globulin 2.8 g/dL (1.3-4.6) 09/23/22 09:29 Discharge Plan Discharge Patient Disposition: Admitted As Inpatient Admit Provider: Joyce Mclean Clinical Impression: NSTEMI (non-ST elevated myocardial infarction), CAD (coronary artery disease) Condition: Stable Coding Level of Care Code ED Survey Research Manager for Andrew Nix
[2022-09-23] MEDS: aspirin 81 mg Chew Tablet 324 MG PO (09:33)
[2022-09-23 09:54] LABS: Basophils % 0.7 %; Eosinophils # 0.3 10^3/uL (0.0-0.8); Eosinophils % 4.9 %; Hematocrit 47.7 % (42.0-52.0); Hemoglobin 15.8 g/dL (11.7-16.6); Lymphocytes # 1.7 10^3/uL (0.8-4.8); Lymphocytes % 29.7 %; Mean Corpuscular HGB Conc 33.1 g/dL (30.0-36.0); Mean Corpuscular Hemoglobin 29.6 pg (28.0-34.0); Mean Corpuscular Volume 89.3 fl (80-94); Mean Platelet Volume 9.2 fL (7.4-10.4); Monocytes # 0.5 10^3/uL (0.2-0.9); Monocytes % 8.2 %; Neutrophils # 3.24 10^3/uL (1.8-7.7); Neutrophils % 56.2 %; Nucleated Red Blood Cells % 0 %; Platelet Count 290 10^3/cmm (130-400); Red Blood Count 5.34 10^6/uL (4.1-5.3); Red Cell Distribution Width 13.3 % (12.1-15.1); White Blood Count 5.8 10^3/uL (4.0-10.0)
--- NOTE | 2022-09-23 10:02 | PC.PHAR ---
pt states he takes care of his own medications-rx filled 03/26/22 30d/s lipitor 40mg hs pt states he cuts in half and then cuts in half again and only takes 10mg twice a week-rx filled 03/26/22 90d/s plavix 75mg daily pt states only takes 75mg twice a week-pt states he takes his lisinopril 10mg daily prn-metoprolol succinate er 25mg daily prn and amlodipine 5mg daily prn-notes are made in the pharmacy comments
[2022-09-23 10:06] LABS: Alanine Aminotransferase 20 U/L (0-41); Albumin Level 4.3 g/dL (3.5-5.2); Alkaline Phosphatase 69 U/L (40-130); Anion Gap 14.1 (5-19); Aspartate Amino Transferase 17 U/L (0-40); Blood Urea Nitrogen 19 mg/dL (8-23); Calcium 9.2 mg/dL (8.5-10.5); Carbon Dioxide 23 mmol/L (22-29); Chloride 104 mmol/L (98-107); Globulin 2.8 g/dL (1.3-4.6); Glomerular Filtration Rate 74.5 mL/min (90-130); Glucose 119 mg/dL (65-115); Osmolality Calculated 287 mOsm/kg (285-295); Potassium 4.1 mmol/L (3.5-5.1); Sodium 137 mmol/L (136-145); Total Bilirubin 0.4 mg/dL (0.15-1.2); Total Protein 7.1 g/dL (6.6-8.7)
[2022-09-23 10:07] LABS: Troponin(5th) Baseline 40 ng/L (0-15)
--- NOTE | 2022-09-23 10:23 | XRR_ITS ---
PROCEDURE INFORMATION: Exam: XR Chest Exam date and time: 09/23/2022 10:28 AM Age: 67 years old Clinical indication: Pain; Chest pressure; Additional info: Chest pain TECHNIQUE: Imaging protocol: Radiologic exam of the chest. Views: 1 view. COMPARISON: CR XR chest 1V portable [id number] 03/24/2022 5:59 AM FINDINGS: Lungs: Unremarkable. No consolidation. Pleural spaces: Unremarkable. No pleural effusion. No pneumothorax. Heart/Mediastinum: Unremarkable. No cardiomegaly. Bones/joints: The patient is post sternotomy with surgical clips overlying the mediastinum. XR/XR chest 1V portable [id number] IMPRESSION: No acute cardiopulmonary disease.
--- NOTE | 2022-09-23 11:10 | ECG_ITS ---
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 Measurements Intervals [place] Rate: 62 P: 35 MT: 184 QRS: 46 QRSD: 84 T: 66 QT: 382 QTc: 390 Interpretive Statements SINUS RHYTHM SEPTAL MYOCARDIAL INFARCTION , OF INDETERMINATE AGE [40+ ms Q WAVE IN V1/V2] Compared to ECG 09/23/2022 09:02:01 No significant changes Electronically Signed On 09-23-2022 21:27:43 CDT by Shayla Lima M.D. [id number]
[2022-09-23 11:57] LABS: Troponin 5 2HR 79.22 ng/L (0-15)
[2022-09-23 11:58] LABS: Troponin 5 2HR Delta 39.22 ABS# (0-10)
[2022-09-23] MEDS: clopidogrel 300 mg Tablet 600 MG PO (12:21)
[2022-09-23 12:33] LABS: Partial Thromboplastin Time 27.2 SECONDS (23.9-36.7)
[2022-09-23] MEDS: nitroglycerin drip 50 MG/250 ML PREMIX IV (12:45)
[2022-09-23] MEDS: heparin 5,000 unit/mL INJ 1 mL IV (13:28)
[2022-09-23] MEDS: heparin drip 25,000 UNIT/500 ML PREMIX 24.77 UNIT IV (13:38)
--- NOTE | 2022-09-23 14:58 | PM.HP ---
Providers/Chief Complaint Admitting Physician: Joyce Mclean MD Primary Care Provider: Facundo Forman DO Chief Complaint: chest pain History of Present Illness Blas Cummings is a 67 year old male with a past medical history of chronic urinary artery disease, status post bypass surgery, hypertension HLD and GERD. He was admitted in March 2022 for chest pain and underwent a coronary angiogram which showed occluded SVG to diagonal which was not amenable to intervention. Patent DHALIWAL to LAD and RENÉ to RCA and [place] left circumflex were noted. His recommended medications are aspirin, Plavix, atorvastatin, metoprolol, which he takes as detailed below. He presents to the emergency room today with chief complaints of chest pain that started at 2 AM and woke him up from sleep. Pain has been intermittent, overnight was relieved by taking nitro but since then has recurred this morning. It is radiating into his left arm. He feels weak and lethargic overall. EKG did not show any acute ST-T wave changes Baseline troponin was at 40, trending up to 79 at 2 hours with a delta of 39. He has been started on nitro drip and heparin drip in the emergency room. He takes his medications as Plavix 75 mg daily. He does not take aspirin 81 mg regularly. He states that on the days that he takes Advil for generalized body ache he skips the aspirin. He is not taking any of his antihypertensives that his amlodipine or lisinopril as he states his blood pressure drops too low. He is not taking metoprolol either. His echocardiogram from March 2022 had shown an LVEF of 65%, normal diastolic function. Review of Systems General: Reports: 10 or more systems reviewed and unremarkable except in HPI and below Const: Denies: fever(s), chills or body aches Eyes: Denies: change in vision, blurry vision or photophobia ENMT: Reports: hoarseness; Denies: throat pain, enlarged tonsils, odynophagia or nasal congestion Card: Denies: chest pain, palpitations, irregular heart rhythm, edema, swelling of feet/ankles, lightheadedness, pre-syncope, dyspnea on exertion or orthopnea Resp: Denies: dyspnea, productive cough, non-productive cough, wheezing, stridor, pain on inspiration, change in phlegm color, hemoptysis or chest congestion GI: Denies: abdominal pain, nausea, vomiting, hematemesis, coffee ground emesis, dysphagia, heartburn, diarrhea, constipation, GI cramping, change in stool character, hematochezia or melena : Denies: flank pain, dysuria, urinary frequency, urinary urgency, urinary hesitancy or hematuria Musc: Denies: neck pain, back pain, extremity pain, joint swelling, joint warmth or deformity Neuro: Denies: headache(s), numbness in extremities, weakness in extremities, sensory changes, difficulty walking, frequent falls, dizziness, vertigo, behavioral changes, Slurred speech present or seizure-like activity Psych: Denies: anxiety, depression, suicidal ideation or homicidal ideation Endo: Denies: polyuria, polydipsia, tired all the time, cold intolerance or hot flashes [place]/Lymph: Denies: easy bruising or easy bleeding Medications/Allergies Home Medications Medication Instructions Recorded Confirmed Last Taken Type fluticasone propionate 50 1 - 2 spray intranasal DAILY PRN 10/26/20 09/23/22 Unknown History mcg/actuation nasal Allergy Symptoms spray,suspension (Flonase Allergy Relief) tramadol 50 mg tablet 50 mg PO TID PRN Pain 05/29/21 09/23/22 Unknown History amlodipine 5 mg tablet 5 mg PO DAILY PRN hypertension #60 04/03/22 09/23/22 Unknown Rx tabs lisinopril 10 mg tablet 10 mg PO DAILY PRN hypertension 04/03/22 09/23/22 Unknown History albuterol sulfate 90 mcg/actuation 2 puff inhalation Q4H PRN 09/23/22 09/23/22 Unknown History aerosol inhaler Shortness Of Breath aspirin 81 mg tablet,delayed 81 mg PO DAILY PRN unknown 09/23/22 09/23/22 Unknown History release atorvastatin 40 mg tablet 10 mg PO .TWICE A WEEK 09/23/22 09/23/22 Unknown History carboxymethylcellulose sodium 0.5 1 drp ophthalmic (eye) QID PRN Dry 09/23/22 09/23/22 Unknown History % eye drops (Refresh Tears) Eye(S) clopidogrel 75 mg tablet 75 mg PO .TWICE A WEEK 09/23/22 09/23/22 Unknown History dorzolamide 22.3 mg-timolol 6.8 1 drp ophthalmic (eye) BID 09/23/22 09/23/22 Unknown History mg/mL eye drops inulin 2 gram chewable tablet 4 g PO DAILY PRN unknown 09/23/22 09/23/22 09/21/22 History (Fiber Gummies) metoprolol succinate 25 mg 25 mg PO DAILY PRN Blood Pressure 09/23/22 09/23/22 Unknown History tablet,extended release 24 hr nitroglycerin 0.4 mg sublingual 0.4 mg sublingual Q5M PRN Chest 09/23/22 09/23/22 09/22/22 History tablet (Nitrostat) Pain pantoprazole 40 mg tablet,delayed 40 mg PO DAILY PRN Heartburn 09/23/22 09/23/22 09/22/22 History release sildenafil 50 mg tablet 50 mg PO DAILY PRN Erectile 09/23/22 09/23/22 Unknown History Dysfunction Allergies Allergy/AdvReac Type Severity Reaction Status Date / Time clavulanic acid Allergy Severe hives Verified 09/23/22 09:51 [From Augmentin] amoxicillin Allergy Unknown Verified 09/23/22 09:51 clarithromycin [From Biaxin] Allergy Unknown Verified 09/23/22 09:51 loracarbef [From Lorabid] Allergy Unknown Verified 09/23/22 09:51 PFSH Acute PFSH: Medical History Acute non-ST segment elevation myocardial infarction Atherosclerosis of coronary artery of [place] heart without angina pectoris 03/25/2022: occluded SVG to diagonal, not amenable to intervention. Patent DHALIWAL to LAD, RENÉ to RCA and [place] left circumflex. Benign essential HTN Dyslipidemia Erectile dysfunction Renal calculus, right Surgical History H/O wrist surgery History of extraction of renal calculus History of hernia surgery Status post coronary artery bypass graft Status post coronary artery stent placement Family History Father , AT AGE 52 CEREBRAL HEMORRHAGE Stroke Mother , AT AGE 90 ALZHEIMERS Anesthesia complication CAD (coronary artery disease), Onset Age: 60 enlarged heart Dementia Brother Anesthesia complication CAD (coronary artery disease), Onset Age: 60 stents Sister Anesthesia complication Grandfather Cancer Grandmother Cancer Denies family history of Diabetes Clotting disorder Chronic kidney disease (CKD) Suicide Bleeding disorder Lung disease Social History Smoking and tobacco status: former smoker Alcohol intake: never Substance/Drug Use: never Adopted: No Caregiver/support person: No Marital status: Current occupational status: employed Vitals/I&O/Wt Last Vital Signs Temp 97.6 F 09/23/22 09:05 Pulse 89 09/23/22 14:45 Resp 17 09/23/22 14:45 BP 143/93 09/23/22 14:45 Pulse Ox 98 09/23/22 12:30 O2 Del Method Room Air 09/23/22 09:25 Weight last 48 hrs Weight 88.451 kg Physical Exam Narrative: General: No acute distress, AO x3 HEENT: PERRLA, pupils bilaterally equal and reactive, pallors not present Chest: Normal vesicular breath sounds, no added sounds, equal good air entry bilaterally CVS: S1-S2 regular, no murmurs, no tachycardia, no gallops, no rubs Abdomen: Soft, nontender, no organomegaly, bowel sounds present Neuro: No focal deficits, no facial deformity, AO x3, power 5/5 in all limbs Data 09/23/22 09:29 09/23/22 09:29 A&P Assessment and plan (1) NSTEMI (non-ST elevated myocardial infarction): Plan 67-year-old with a past medical history of CAD status post CABG, multiple cardiac risk factors presenting today with complaints of chest pain radiating into left arm EKG without acute ST-T wave changes Troponin series with delta of 39 at 2 hours Overall concern for NSTEMI He has been started on heparin and nitroglycerin infusion in the emergency room which we will continue He has additionally received aspirin 325 mg and Plavix 600 mg We will continue with aspirin 81 mg p.o. daily and Plavix 75 mg daily He only takes atorvastatin 10 mg daily at home, for now we will continue him with 40 mg daily. He reports that he feels very weak and needed that he takes 40 mg statin and therefore decided to cut it in quarters. He is willing to be placed back on metoprolol 25 mg p.o. daily cadiology consult Npo post midnight for possible cath Attestations Medical Necessity Statement*: > 2 midnight admission is anticipated Coding Level of Care Code Acute Code for g Fwd Diagnoses NSTEMI (non-ST elevated myocardial infarction) I21.4
--- NOTE | 2022-09-23 15:29 | PC.NURSE ---
Patient cames from ED at 1530.
[2022-09-23 16:05] LABS: NT Pro B Type Natriuretic Pept 139 pg/mL (0-125)
--- NOTE | 2022-09-23 16:30 | PM.CONSULT ---
Providers/Reason For Consult Consulting Physician/Specialty*: Yordan Gilbert MD/Cardiology Reason for Consult*: NSTEMI Requesting Physician: Dr Hurtado Attending Physician: Joyce Mclean MD Primary Care Provider: Facundo Forman DO History of Present Illness History of Present Illness Blas Cummings is a 67 year old male with past medical history of CAD status post CABG, who presented with chest pain that started at 2 AM last night. It has been on and off. Nitro improves the pain. Since coming to the hospital, chest pain has resolved. He is currently on heparin drip. His initial troponin was elevated at 39 and trended up to 276 over 6 hours. EKG shows normal sinus rhythm with no significant ST T wave changes Patient had presented with non-ST elevation [place] earlier this year and underwent coronary angiogram that showed patent DHALIWAL to LAD and RENÉ to RCA. SVG graft to diagonal artery was distally occluded. [place] left circumflex artery was patent. Review of Systems General: Reports: 10 or more systems reviewed and unremarkable except in HPI and below Const: Denies: fever(s), chills or body aches Eyes: Denies: change in vision, blurry vision or photophobia ENMT: Reports: hoarseness; Denies: throat pain, enlarged tonsils, odynophagia or nasal congestion Card: Reports: chest pain; Denies: palpitations, irregular heart rhythm, edema, swelling of feet/ankles, lightheadedness, pre-syncope, dyspnea on exertion or orthopnea Resp: Denies: dyspnea, productive cough, non-productive cough, wheezing, stridor, pain on inspiration, change in phlegm color, hemoptysis or chest congestion GI: Denies: abdominal pain, nausea, vomiting, hematemesis, coffee ground emesis, dysphagia, heartburn, diarrhea, constipation, GI cramping, change in stool character, hematochezia or melena : Denies: flank pain, dysuria, urinary frequency, urinary urgency, urinary hesitancy or hematuria Musc: Denies: neck pain, back pain, extremity pain, joint swelling, joint warmth or deformity Neuro: Denies: headache(s), numbness in extremities, weakness in extremities, sensory changes, difficulty walking, frequent falls, dizziness, vertigo, behavioral changes, Slurred speech present or seizure-like activity Psych: Denies: anxiety, depression, suicidal ideation or homicidal ideation Endo: Denies: polyuria, polydipsia, tired all the time, cold intolerance or hot flashes Eitan/Lymph: Denies: easy bruising or easy bleeding Medications/Allergies Home Medications Medication Instructions Recorded Confirmed Last Taken Type fluticasone propionate 50 1 - 2 spray intranasal DAILY PRN 10/26/20 09/23/22 Unknown History mcg/actuation nasal Allergy Symptoms spray,suspension (Flonase Allergy Relief) tramadol 50 mg tablet 50 mg PO TID PRN Pain 05/29/21 09/23/22 Unknown History amlodipine 5 mg tablet 5 mg PO DAILY PRN hypertension #60 04/03/22 09/23/22 Unknown Rx tabs lisinopril 10 mg tablet 10 mg PO DAILY PRN hypertension 04/03/22 09/23/22 Unknown History albuterol sulfate 90 mcg/actuation 2 puff inhalation Q4H PRN 09/23/22 09/23/22 Unknown History aerosol inhaler Shortness Of Breath aspirin 81 mg tablet,delayed 81 mg PO DAILY PRN unknown 09/23/22 09/23/22 Unknown History release atorvastatin 40 mg tablet 10 mg PO .TWICE A WEEK 09/23/22 09/23/22 Unknown History carboxymethylcellulose sodium 0.5 1 drp ophthalmic (eye) QID PRN Dry 09/23/22 09/23/22 Unknown History % eye drops (Refresh Tears) Eye(S) clopidogrel 75 mg tablet 75 mg PO .TWICE A WEEK 09/23/22 09/23/22 Unknown History dorzolamide 22.3 mg-timolol 6.8 1 drp ophthalmic (eye) BID 09/23/22 09/23/22 Unknown History mg/mL eye drops inulin 2 gram chewable tablet 4 g PO DAILY PRN unknown 09/23/22 09/23/22 09/21/22 History (Fiber Gummies) metoprolol succinate 25 mg 25 mg PO DAILY PRN Blood Pressure 09/23/22 09/23/22 Unknown History tablet,extended release 24 hr nitroglycerin 0.4 mg sublingual 0.4 mg sublingual Q5M PRN Chest 09/23/22 09/23/22 09/22/22 History tablet (Nitrostat) Pain pantoprazole 40 mg tablet,delayed 40 mg PO DAILY PRN Heartburn 09/23/22 09/23/22 09/22/22 History release sildenafil 50 mg tablet 50 mg PO DAILY PRN Erectile 09/23/22 09/23/22 Unknown History Dysfunction Allergies Allergy/AdvReac Type Severity Reaction Status Date / Time clavulanic acid Allergy Severe hives Verified 09/23/22 09:51 [From Augmentin] amoxicillin Allergy Unknown Verified 09/23/22 09:51 clarithromycin [From Biaxin] Allergy Unknown Verified 09/23/22 09:51 loracarbef [From Lorabid] Allergy Unknown Verified 09/23/22 09:51 Current Medications Generic Name Dose Route Start Last Admin Trade Name Freq PRN Reason Stop Dose Admin Heparin Sodium (Porcine) 0 unit 09/23/22 12:05 09/23/22 13:28 Heparin 5,000 Unit/Ml Inj 1 Ml IV 4,400 unit PRN PRN Administration Heparin weight-base protocol Protocol Nitroglycerin/Dextrose 50 mg in 250 mls @ 0 mls/hr 09/23/22 12:15 09/23/22 12:45 Nitroglycerin Drip IV 5 mcg/min .Q0M BRIGID 1.5 mls/hr Administration Protocol Per Protocol Heparin Sodium/Sodium Chloride 25,000 unit in 500 mls @ 0 mls/hr 09/23/22 12:15 09/23/22 13:38 Heparin Drip IV 14 unit/kg/hr .Q0M BRIGID 24.77 mls/hr Administration Protocol Per Protocol PFSH Acute PFSH: Medical History Acute non-ST segment elevation myocardial infarction Atherosclerosis of coronary artery of [place] heart without angina pectoris 03/25/2022: occluded SVG to diagonal, not amenable to intervention. Patent DHALIWAL to LAD, RENÉ to RCA and [place] left circumflex. Benign essential HTN Dyslipidemia Erectile dysfunction Renal calculus, right Surgical History H/O wrist surgery History of extraction of renal calculus History of hernia surgery Status post coronary artery bypass graft Status post coronary artery stent placement Family History Father , AT AGE 52 CEREBRAL HEMORRHAGE Stroke Mother , AT AGE 90 ALZHEIMERS Anesthesia complication CAD (coronary artery disease), Onset Age: 60 enlarged heart Dementia Brother Anesthesia complication CAD (coronary artery disease), Onset Age: 60 stents Sister Anesthesia complication Grandfather Cancer Grandmother Cancer Denies family history of Diabetes Clotting disorder Chronic kidney disease (CKD) Suicide Bleeding disorder Lung disease Social History Smoking and tobacco status: former smoker Alcohol intake: never Substance/Drug Use: never Adopted: No Caregiver/support person: No Marital status: Current occupational status: employed Vitals/I&O/Wt Last Vital Signs Temp 97.6 F 09/23/22 09:05 Pulse 69 09/23/22 16:00 Resp 18 09/23/22 16:00 BP 161/98 09/23/22 16:00 Pulse Ox 96 09/23/22 16:00 O2 Del Method Room Air 09/23/22 16:00 Weight last 48 hrs Weight 195 lb Physical Exam Narrative: GENERAL: Patient is alert, awake and oriented x3. [] NECK: No jugular vein distension. [] HEENT: No cyanosis. No icterus. No pallor. [] HEART: Regular S1 and S2. No murmur, rub or gallop. [] LUNGS: Clear to auscultate bilaterally. [] CENTRAL NERVOUS SYSTEM: Grossly nonfocal. [] EXTREMITIES: Lower extremities with 1+ edema bilaterally. Data 09/24/22 02:55 09/24/22 02:55 A&P Assessment and plan (1) NSTEMI (non-ST elevated myocardial infarction): (2) Benign essential HTN: (3) Atherosclerosis of coronary artery of [place] heart without angina pectoris: Plan Patient has presented with non-ST elevation [place]. No significant EKG changes seen. Troponins did trend up significantly. N.p.o. past midnight. We will plan on coronary angiogram tomorrow. Risks and benefits of the procedure were discussed with the patient. Continue aspirin, Plavix and heparin drip. Nitro as needed. Ordered echocardiogram. Thank you for involving us with care of this patient. We will continue to follow. Please call us with questions. Consult Attestations Medical Necessity Statement: Care expected to cross 2 midnights. Coding Level of Care Code Acute Code for Chg Fwd Diagnoses NSTEMI (non-ST elevated myocardial infarction) I21.4 Benign essential HTN I10 Atherosclerosis of coronary artery of [place] heart without angina pectoris I25.10
[2022-09-23] MEDS: morphine 4 mg/mL SDV 1 mL 2 MG IVP (16:35)
--- NOTE | 2022-09-23 16:36 | ECG_ITS ---
[facility] Test Date: 2022-09-23 Pat Name: Blas Cummings Department: Room: 102 Gender: Male Trouble Locator Test Desk: : 1955 Requested By: Arnaldo Coleman Order Number: [id number] Mikaela MD: Shayla Lima M.D. Measurements Intervals [place] Rate: 68 P: 29 AK: 176 QRS: 45 QRSD: 85 T: 57 QT: 365 QTc: 389 Interpretive Statements SINUS RHYTHM SEPTAL MYOCARDIAL INFARCTION , OF INDETERMINATE AGE [40+ ms Q WAVE IN V1/V2] Compared to ECG 09/23/2022 11:09:00 No significant changes Electronically Signed On 09-23-2022 21:23:18 CDT by Shayla Lima M.D. [id number]
[2022-09-23] MEDS: atorvastatin 40 mg Tablet PO (18:31)
[2022-09-23 20:05] LABS: Partial Thromboplastin Time 86.7 SECONDS (23.9-36.7)
[2022-09-24] VITALS (60 sets, daily range): BP systolic 128–170; BP diastolic 87–108; PULSE 60–93; RESP 14–27; TEMP 36.5–36.9; O2SAT 93–99
[2022-09-24] MEDS: acetaminophen 325 mg Tablet 650 MG PO ×3 (01:25→20:22)
[2022-09-24 02:59] LABS: Basophils # 0.1 10^3/uL (0.0-0.1); Basophils % 0.6 %; Eosinophils # 0.4 10^3/uL (0.0-0.8); Eosinophils % 5.4 %; Hematocrit 45.1 % (42.0-52.0); Hemoglobin 15.3 g/dL (11.7-16.6); Lymphocytes # 1.2 10^3/uL (0.8-4.8); Lymphocytes % 14.5 %; Mean Corpuscular HGB Conc 33.9 g/dL (30.0-36.0); Mean Corpuscular Hemoglobin 29.8 pg (28.0-34.0); Mean Corpuscular Volume 87.7 fl (80-94); Mean Platelet Volume 8.7 fL (7.4-10.4); Monocytes # 0.8 10^3/uL (0.2-0.9); Monocytes % 9.3 %; Neutrophils % 69.7 %; Nucleated Red Blood Cells % 0 %; Platelet Count 241 10^3/cmm (130-400); Red Blood Count 5.14 10^6/uL (4.1-5.3); Red Cell Distribution Width 13.3 % (12.1-15.1); White Blood Count 8.2 10^3/uL (4.0-10.0)
[2022-09-24 03:32] LABS: Partial Thromboplastin Time 63.4 SECONDS (23.9-36.7)
[2022-09-24 03:43] LABS: Alanine Aminotransferase 22 U/L (0-41); Alkaline Phosphatase 70 U/L (40-130); Chloride 104 mmol/L (98-107); Potassium 4.1 mmol/L (3.5-5.1); Sodium 139 mmol/L (136-145)
[2022-09-24 04:05] LABS: Anion Gap 17.1 (5-19); Blood Urea Nitrogen 18 mg/dL (8-23); Carbon Dioxide 22 mmol/L (22-29); Globulin 2.6 g/dL (1.3-4.6); Glomerular Filtration Rate 74.5 mL/min (90-130); Glucose 111 mg/dL (65-115); Osmolality Calculated 291 mOsm/kg (285-295); Total Bilirubin 0.5 mg/dL (0.15-1.2); Total Protein 6.6 g/dL (6.6-8.7)
[2022-09-24 04:06] LABS: Aspartate Amino Transferase 42 U/L (0-40)
[2022-09-24] MEDS: diphenhydrAMINE 50 mg Capsule PO (04:57)
[2022-09-24] MEDS: sodium chloride 0.9% 1,000 ML 50 ML IV (04:57)
[2022-09-24] MEDS: metoprolol succinate ER (24 HR) 25 mg Tablet PO ×2 (05:14→18:06)
[2022-09-24] MEDS: clopidogrel 75 mg Tablet PO (05:14)
[2022-09-24] MEDS: aspirin 81 mg EC Tablet PO (05:14)
--- NOTE | 2022-09-24 06:00 | XACV_ITS ---
Exam Room: [facility] Ht: 170 cm Wt: 88 kg BSA: 2.07 m2 Gender: Male : 1955 Any Known Allergies: Other Exam Priority: Routine Procedure(s): Procedure Description: Diagnostic procedure Procedure Description: Left Heart Catheterization Procedure Description: Left ventriculography Procedure Description: Miscellaneous Procedure Description: ACT Procedure Description: Coronary Angiography Diagnostic Cath Status: Urgent Diagnostic Findings * Left Main has no significant disease. * Circumflex has no significant disease. * Right Coronary Artery is proximally occluded. Unchanged from before. * Proximal Left Anterior Descending: chronic total occlusion of old stent, ALYSHA: 0 flow. * Bypass grafts: * DHALIWAL to LAD: Patent. RENÉ to RCA: Patent. SVG to diagonal: Has a large thrombus subtotally occluding the vessel in the body of the graft. It is diffusely diseased and supplies a small area. This is the culprit lesion for NSTEMI. * Coronary angiography shows right dominance. Conclusions 1. Large thrombus 2. in body of SVG to diagonal artery 3. . This is subtotally occluding the vessel. 4. Post thrombus, graft and [place] vessel are small in size and diffusely diseased. 5. This vessel is culprit for non-ST elevation [place]. 6. Medical therapy given small size of supplied territory 7. and large thrombus burden.. 8. Patent DHALIWAL to LAD and RENÉ to RCA. 9. Patient has prior CABG. 10. Mild left ventricular systolic dysfunction. Ejection fraction of 45%. Recommendations * Continue dual antiplatelet therapy with aspirin and plavix. * Resume heparin gtt in 4 hours post sheath pull. We will complete 48 hours of anticoagulation. * Aggressive risk factor modification. * Outpatient cardiology follow up in 2-4 weeks. Interventional RX Recommendation: medical therapy and/or counseling Diagnostic RX Recommendation: medical therapy and/or counseling Anticoagulation: Heparin Ventriculography Ejection Fraction: 45.0 % Pressures Phase:Rest AO : 170 / 88 ( 137 ) @ 7:23:00 AM 145 / 106 ( 126 ) @ 7:25:00 AM 167 / 99 ( 129 ) @ 7:27:00 AM 130 / 92 ( 109 ) @ 7:29:00 AM 145 / 110 ( 128 ) @ 7:33:00 AM 159 / 78 ( 110 ) @ 7:44:00 AM 161 / 58 ( 100 ) @ 7:44:00 AM LV : 170 / -18 / 25 @ 7:43:00 AM 150 / -11 / 10 @ 7:44:00 AM 166 / -11 / 17 @ 7:44:00 AM Valves Phase:DefaultPhase AV : 5.0 @ 6:54:51 AM 5.0 @ 6:54:51 AM AV Mean Gradient: 13.0 @ 6:54:51 AM 13.0 @ 6:54:51 AM Clinical Evaluation EBL: 5mL-10mL Procedural Details Procedure Consent Obtained. Admit Source: In Patient. Pre-Procedure Time Out. Identified patient by full name and date of as verbalized by the patient/guarantor. Does the consent match the physician's order: Yes. Accurate & Complete Informed Consent: Yes. Inpatient/Outpatient History & Physical on Chart: Yes. If H&P is completed, is and addenduem needed: No; If yes, is the addendum complete: N/A. Visualize and Verify Site with Patient/Guarantor: N/A. Relevant Radiology Images available: N/A. Pre-op teaching completed and patient verbalized understanding. The risks, benefits, and alternatives of sedation and/or procedure were discussed by physician. The patient agrees to continue. Procedure started. [facility] Clinical Fraility Score: 4: Vulnerable. Medical Dosimetrist Indications: Worsening Angina. Chest Pain Symptom Assessment: Typical Angina Symptoms. Cardiovascular Instability: Yes, if yes, Persistant Ischemic Symptoms. Correct patient, site and procedure confirmed by cath team. Current diagnosis: Chest Pain. PERRLA. Strong, equal hand site operations manager bilaterally. Lungs clear x 5 lobes. IV Site on Arrival: 18 gauge in the left anticubital. IV Fluids: 0.9% NaCl at KVO. 50 mL infused prior to sleep lab technician. Pre Procedural Pulses: bilateral dorsalis pedis was 2+. Oxygen started at 2liters/min via nasal canula. right groin was prepped with chloroprep then draped in the usual sterile fashion. left groin was prepped with chloroprep then draped in the usual sterile fashion. Physician notified. Baseline sample Acquired. HR: 72 BPM. Physician arrived. Physician scrubbed in. Immediate Pre-Procedure Time Out. Correct Patient: Yes; Correct Procedure: Yes; Correct Site: Yes; Correct Patient Position: Yes; Correct Supplies: Yes; Dried Flammable Prep: Yes; Blood Products Available: N/A;. Lidocaine 1% infiltrated to the right groin. Arterial access obtained with micropuncture set. A 5 ivorian JL4 catheter in over wire. Multiple views taken of left coronary artery. Catheter removed over the exchange wire. A 5 ivorian JR4 catheter in over wire. SVG's to Diaganol visualized and patent. DHALIWAL to LAD visualized. Glidewire inserted. Catheter redirected to the RENÉ. RENÉ to RCA visualized and patent. Catheter removed over the exchange wire. Glidewire removed. A 5 ivorian Angled Pig catheter in over wire. EDP Sample taken: LV 170/-19,25; HR: 73 BPM; SpO2: 96%. LV gram performed in [place] @ 10 mL/second for a total of 30 mL. EDP Sample taken: LV 150/-12,10; HR: 82 BPM; SpO2: 96%. Pullback taken: LV 166/-12,17; AO 159/78(110); Mean: 13mmHg, Peak to Peak: 5mmHg, SEP: 19sec/min; HR: 75 BPM; SpO2: 96%. Catheter removed over the exchange wire. ACT drawn. Results 170 seconds. Therapeutic limits - pre-heparin administration 90-150 seconds and monitoring heparin during a vascular procedure >250 seconds. Physician review of cine films. Physician scrubbed out. A Suture was successful obtaining hemostatsis at the Right Femoral artery insertion site. Sheath(s) sutured into position with 2-0 silk and sterile 4x4's and Op-site applied over the site. No oozing or signs and symptoms of hematoma noted. Arterial sheath flushed and connected to tranducer and pressure bag with heparinized saline. Post Procedure: Pulses reassessed and unchanged. PERRLA. Strong, equal hand site operations manager bilaterally. No VTE prophylaxis required. Medication's Wasted: Heparin = 4000 u. Total IV fluids: 50 mL. Post-op diagnosis: Subtotal thrombotic occlusion to SVG to Diagonal artery. Complications: none. Estimated blood loss: 5mL-10mL. Responsiveness - Normal response to verbal stimuli; alert and oriented, PERRLA. Airway - Unaffected, no intervention required; spontaneous ventilation. Circulation: W/N/L, pulses unchanged. Nausea/Vomiting: No. Procedure completed. Patient transferred by bed to 1st floor. Vital chart was stopped. Access Site Site: Right Femoral artery Sheath Size: 6 Fr Hemostasis Method: Suture Hemostasis Success: Successful I, the attending physician, have reviewed and verified all procedure medications. Yes, all medications given per verbal order History/Risk Factors Hypertension: No Dyslipidemia: Yes Peripheral Arterial Disease (PAD): No Myocardial Infarction ([place]): No Obesity: Yes Renal Disease: No Tobacco Use: Former Prior Interventions PCI: Yes CABG: Yes Valve Surgery: No Date of PCI: 11/18/2014 Report Signatures Finalized by Yordan Gilbert MD on 10/01/2022 09:05 AM
--- NOTE | 2022-09-24 06:14 | W.PM.OPSUD ---
Surgery/Procedure H&P Update DATE OF PROCEDURE: September 24, 2022 DATE H&P PERFORMED: 09/23/22 H&P UPDATE INFORMATION: I have reviewed H&P completed within last 30 days, I have examined patient prior to procedure and No changes to prior documentation PREOP DIAGNOSIS: NSTEMI PRIMARY INDICATION FOR PROCEDURE: NSTEMI PLANNED PROCEDURE: Left heart cath with possible percutaneous coronary intervention PATIENT REASSESSED PRIOR TO SEDATION, WITH NO CHANGE NOTED: Yes PHYSICAL EXAM: alert, oriented x 3, clear to auscultation bilaterally and regular rate & rhythm AIRWAY EVAL/ANESTHESIA PLAN: normal airway, ASA III, Local Anesthesia, Risks, benefits & alternatives of sedation and/or procedure discussed (Moderate sedation) and Patient agrees to continue as planned
[2022-09-24] MEDS: pantoprazole DR 40 mg Tablet PO (08:59)
--- NOTE | 2022-09-24 10:16 | USCV_ITS ---
Blas Cummings Age: 67 Gender: M : 1955 Exam Date: 09/24/2022 14:00 Ordering Phys: Yordan Gilbert M.D ([email or web address]) Technologist: CT [place] [facility] [place]: nstemi BP: 152 / 80 HR: 73 Rhythm: Sinus Technical Quality: Adequate MEASUREMENTS (Male / Female) Normal Values 2D ECHO LV Diastolic Diameter PLAX 3.3 cm 4.2 - 5.9 / 3.9 - 5.3 cm LV Systolic Diameter PLAX 1.7 cm IVS Diastolic Thickness 1.3 cm 0.6 - 1.0 / 0.6 - 0.9 cm IVS Systolic Thickness 1.5 cm LVPW Diastolic Thickness 0.9 cm 0.6 - 1.0 / 0.6 - 0.9 cm LVPW Systolic Thickness 1.7 cm LVOT Diameter 2.4 cm LV Ejection Fraction 2D Teich 80.9 % LA Diameter 4.1 cm Aorta at Sinotubular Diameter 2.6 cm M-MODE Aortic Annulus Diameter 3.0 cm LA Ao Ratio MM 1.4 MV E Point Septal Separation 0.6 cm DOPPLER AV Peak Velocity 103.0 cm/s LVOT Peak Velocity 97.0 cm/s AV Area Cont Eq vti 5.3 cm squared AV Area Cont Eq pk 4.2 cm squared MV Area PHT 4.2 cm squared Mitral E to A Ratio 1.5 MV E' Velocity 77.0 cm/s Mitral E to LV E' Septal Ratio 15.2 TR Peak Velocity 99.5 cm/s TR Peak Gradient 4.0 mmHg TV Peak E Velocity 82.0 cm/s Right Atrial Pressure 3.0 mmHg Pulmonary Artery Systolic Pressu 7.0 mmHg PV Peak Velocity 116.0 cm/s RV Acceleration Time 0.1 s FINDINGS Left Ventricle Left ventricle is normal size. Grossly LV systolic function is mildly reduced. Accurate assessment of regional wall motion abnormalities cannot be done because of poor ultrasonic windows. Right Ventricle Normal in size and function Right Atrium Normal in size Left Atrium Normal in size Mitral Valve Grossly normal Aortic Valve Aortic valve is thickened. No significant stenosis or regurgitation. Tricuspid Valve Not well visualized Pulmonic Valve Not well visualized Pericardium Normal Aorta Normal in size IVC Not well visualized CONCLUSIONS Technically limited quality echocardiogram because of poor ultrasonic windows. LV systolic function is grossly mildly reduced. Valvular structures not well visualized. Comparison with prior echocardiograms is not possible because of limited quality study Yordan Gilbert MD (Electronically Signed) Final Date: 24 September 2022 18:00 S
--- NOTE | 2022-09-24 10:21 | P.PN_ITS ---
Subjective Subjective: Patient is doing well. no chest pain. Coronary angiogram demonstrated patent DHALIWAL to LAD and RENÉ to LAD. SVG to Diagonal artery has high thrombus burden. However small sized [place] artery and is diffusely diseased. We decided to medically treat him as he is chest pain free and benefit of small sized, diffusely diseased vessel is limited. Vitals/I&O/Wt Last Vital Signs Temp 97.9 F 09/24/22 08:00 Pulse 70 09/24/22 08:53 Resp 19 H 09/24/22 08:53 BP 153/91 09/24/22 09:57 Pulse Ox 97 09/24/22 08:45 O2 Del Method Room Air 09/24/22 08:53 09/23/22 09/24/22 09/24/22 22:59 06:59 14:59 Intake Total 646.372 / 646.372 0 / 646.372 480 / 480 Output Total 0 / 0 375 / 375 Balance 646.372 / 646.372 -375 / 271.372 480 / 480 Weight last 48 hrs Weight 195 lb Physical Exam Narrative: GENERAL: Patient is alert, awake and oriented x3. [] NECK: No jugular vein distension. [] HEENT: No cyanosis. No icterus. No pallor. [] HEART: Regular S1 and S2. No murmur, rub or gallop. [] LUNGS: Clear to auscultate bilaterally. [] CENTRAL NERVOUS SYSTEM: Grossly nonfocal. [] EXTREMITIES: Lower extremities with 1+ edema bilaterally. Data 09/24/22 02:55 09/24/22 02:55 A&P Assessment and plan (1) NSTEMI (non-ST elevated myocardial infarction): (2) Benign essential HTN: (3) Atherosclerosis of coronary artery of [place] heart without angina pectoris: Plan Above-mentioned coronary artery anatomy. Medical therapy. Continue dual antiplatelet therapy with aspirin and Plavix. We will continue heparin drip for 48 hours Thank you for involving us with care of this patient. We will continue to follow. Please call us with questions. Attestations Medical Necessity Statement*: Care expected to cross 2 midnights. Coding Level of Care Code Acute Code for [facility] Fwd Diagnoses NSTEMI (non-ST elevated myocardial infarction) I21.4 Benign essential HTN I10 Atherosclerosis of coronary artery of [place] heart without angina pectoris I25.10
--- NOTE | 2022-09-24 11:30 | PM.PN ---
Subjective Subjective: Patient underwent cardiac catheterization this morning. Findings were similar to angiogram performed in March which showed a chronically occluded SVG not amenable to intervention. Overnight patient's troponins trended up at 6-hour. He is currently being managed for an NSTEMI medically currently. Denies any chest pain this morning. He is off nitro drip at this time. Vitals/I&O/Wt Last Vital Signs Temp 97.9 F 09/24/22 08:00 Pulse 70 09/24/22 08:53 Resp 19 H 09/24/22 08:53 BP 153/91 09/24/22 09:57 Pulse Ox 97 09/24/22 08:45 O2 Del Method Room Air 09/24/22 08:53 09/23/22 09/24/22 09/24/22 22:59 06:59 14:59 Intake Total 646.372 / 646.372 0 / 646.372 480 / 480 Output Total 0 / 0 375 / 375 Balance 646.372 / 646.372 -375 / 271.372 480 / 480 Weight last 48 hrs Weight 88.451 kg Physical Exam Narrative: General: No acute distress, AO x3 HEENT: PERRLA, pupils bilaterally equal and reactive, pallors not present Chest: Normal vesicular breath sounds, no added sounds, equal good air entry bilaterally CVS: S1-S2 regular, no murmurs, no tachycardia, no gallops, no rubs Abdomen: Soft, nontender, no organomegaly, bowel sounds present Neuro: No focal deficits, no facial deformity, AO x3, power 5/5 in all limbs Data 09/24/22 02:55 09/24/22 02:55 A&P Assessment and plan (1) NSTEMI (non-ST elevated myocardial infarction): Plan 67-year-old with a past medical history of CAD status post CABG, multiple cardiac risk factors presenting with chest and arm pain cardiac evaluation consistent with NSTEMI Status post angiogram this morning which showed a chronically occluded SVG not amenable to intervention. Continue medical management He has been started on heparin which we will continue for total of 48 hours Discontinue nitroglycerin as he is currently chest pain-free Continue aspirin 81 mg p.o. daily and Plavix 75 mg daily, encourage compliance as outpatient continue atorvastatin 40 mg daily. Increase metoprolol 25 mg p.o. bid Noted to be hypertensive here with blood pressure ranging between 150-166/90 systolic. Increase metoprolol prior to adding other medications cadiology consult appreciated #Left eye redness: Patient recently had cataract surgery, continue with his home eyedrops of moxifloxacin, dorzolamide timolol and Refresh Tears. He has these medications at bedside. Attestations Medical Necessity Statement*: Needs continued admission for NSTEMI, ongoing anticoagulation, medical management Coding Level of Care Code Acute Code for [facility] Diagnoses NSTEMI (non-ST elevated myocardial infarction) I21.4
[2022-09-24] MEDS: perflutren protein-a microsphr 0.22 mg/mL SDV 3 mL IV (14:47)
[2022-09-24 15:15] LABS: Partial Thromboplastin Time 26.2 SECONDS (23.9-36.7)
[2022-09-24] MEDS: atorvastatin 40 mg Tablet PO (18:06)
[2022-09-24] MEDS: heparin drip 25,000 UNIT/500 ML PREMIX 37 UNIT IV (19:40)
[2022-09-24 22:23] LABS: Partial Thromboplastin Time 125.8 SECONDS (23.9-36.7)
[2022-09-25] VITALS (7 sets, daily range): BP systolic 116–131; BP diastolic 70–98; PULSE 60–68; RESP 16–22; TEMP 36.4–36.9; O2SAT 96–99
[2022-09-25 05:18] LABS: Platelet Count 259 10^3/cmm (130-400)
[2022-09-25 06:03] LABS: Partial Thromboplastin Time 157.7 SECONDS (23.9-36.7)
--- NOTE | 2022-09-25 07:57 | PM.PN ---
Subjective Subjective: Patient doing well. Denies any chest pain. Vitals/I&O/Wt Last Vital Signs Temp 97.7 F 09/25/22 04:00 Pulse 64 09/25/22 07:12 Resp 16 09/25/22 04:00 BP 116/81 09/25/22 04:00 Pulse Ox 96 09/25/22 07:12 O2 Del Method Room Air 09/25/22 07:12 09/24/22 09/25/22 09/25/22 22:59 06:59 14:59 Intake Total 1271.978 / 2191.978 1238.933 / 3430.911 Output Total 0 / 0 200 / 200 Balance 1271.978 / 2191.978 1038.933 / 3230.911 Weight last 48 hrs Weight 195 lb Physical Exam Narrative: GENERAL: Patient is alert, awake and oriented x3. [] NECK: No jugular vein distension. [] HEENT: No cyanosis. No icterus. No pallor. [] HEART: Regular S1 and S2. No murmur, rub or gallop. [] LUNGS: Clear to auscultate bilaterally. [] CENTRAL NERVOUS SYSTEM: Grossly nonfocal. [] EXTREMITIES: Lower extremities with 1+ edema bilaterally. Data 09/25/22 04:55 09/24/22 02:55 A&P Assessment and plan (1) NSTEMI (non-ST elevated myocardial infarction): (2) Benign essential HTN: (3) Atherosclerosis of coronary artery of [place] heart without angina pectoris: Plan Patient is overall doing well. Continue current medications including aspirin, Plavix, statin and metoprolol. Thank you for involving us with care of this patient. Patient is stable to be discharged from cardiology standpoint with close outpatient follow up. Please call us with questions. Attestations Medical Necessity Statement*: Care expected to cross 2 midnights. Coding Level of Care Code Acute Code for [facility] Diagnoses NSTEMI (non-ST elevated myocardial infarction) I21.4 Benign essential HTN I10 Atherosclerosis of coronary artery of [place] heart without angina pectoris I25.10
[2022-09-25] MEDS: clopidogrel 75 mg Tablet PO (08:50)
[2022-09-25] MEDS: metoprolol succinate ER (24 HR) 25 mg Tablet PO (08:51)
[2022-09-25] MEDS: pantoprazole DR 40 mg Tablet PO (08:51)
[2022-09-25] MEDS: aspirin 81 mg EC Tablet PO (08:51)
[2022-09-25 09:43] LABS: Partial Thromboplastin Time 32.9 SECONDS (23.9-36.7)
--- NOTE | 2022-09-25 11:20 | P.DS_ITS ---
Discharge Providers Date of Admission: 09/23/22 14:58 Date of Discharge: September 25, 2022 Attending Provider at Admission: Joyce Mclean MD Attending Provider at Discharge: Joyce Mclean MD Primary Care Provider: Facundo Forman DO Diagnoses at Discharge Discharge Diagnosis (1) NSTEMI (non-ST elevated myocardial infarction): Status: Acute (2) Benign essential HTN: Status: Acute (3) Atherosclerosis of coronary artery of [place] heart without angina pectoris: Status: Acute Permanent problem details: 03/25/2022: occluded SVG to diagonal, not amenable to intervention. Patent DHALIWAL to LAD, RENÉ to RCA and [place] left circumflex. Reason for Visit Reason for Visit: chest pain Brief History: Blas Cummings is a 67 year old male with a past medical history of coronary artery disease, status post bypass surgery, hypertension HLD and GERD. He presented to the emergency room on September 23, 2022 with chief complaints of chest pain. Troponin trend showed serial increase consistent with an NSTEMI. Initially here was on heparin infusion and nitroglycerin drip. On September 24, 2022 he underwent a left heart cath which showed chronically occluded SVG not amenable to intervention, similar to his angiogram in March 2022. He is being discharged with recommendations for medical management. Aspirin 81 mg daily, Plavix 75 mg daily, atorvastatin at least 20 mg daily (patient currently taking 10 mg, does not want to take 40 mg dose as it makes him feel fatigued.), Metoprolol 25 mg p.o. daily. While in the hospital his blood pressure was controlled on metoprolol. He had not been taking his amlodipine or lisinopril at home. Both of these medications were held during hospital course and blood pressure was maintained. Therefore he is being discharged on metoprolol only. Follow-up with cardiology nurse practitioner in 1 week. This documentation was created by [employer] slide forming machine operator software. Every effort was made to ensure accuracy of slide forming machine operator. Any obvious errors or omissions should be clarified with the author of the document. Physical Exam Narrative: General: No acute distress, AO x3 HEENT: PERRLA, pupils bilaterally equal and reactive, pallors not present Chest: Normal vesicular breath sounds, no added sounds, equal good air entry bilaterally CVS: S1-S2 regular, no murmurs, no tachycardia, no gallops, no rubs Abdomen: Soft, nontender, no organomegaly, bowel sounds present Neuro: No focal deficits, no facial deformity, AO x3, power 5/5 in all limbs Discharge Data Studies Completed and Pending Completed Studies During Hospitalization Category Date Time Status XR chest 1V portable [id number] Stat Exams 09/23/22 10:23 Completed CV. echo wo/w contrast [id number] Routine Ultrasound 09/24/22 10:16 Completed Pending at discharge Category Date Time Status CHART PICKER request for service Routine Exams 09/24/22 06:00 Taken Platelet Count Q2D Lab 09/27/22 04:00 Ordered Radiology Impressions Chest X-Ray 09/23/22 10:23 IMPRESSION: No acute cardiopulmonary disease. Laboratory Results WBC 8.2 10^3/uL (4.0-10.0) 09/24/22 02:55 RBC 5.14 10^6/uL (4.1-5.3) 09/24/22 02:55 Hgb 15.3 g/dL (11.7-16.6) 09/24/22 02:55 Hct 45.1 % (42.0-52.0) 09/24/22 02:55 MCV 87.7 fl (80-94) 09/24/22 02:55 MCH 29.8 pg (28.0-34.0) 09/24/22 02:55 MCHC 33.9 g/dL (30.0-36.0) 09/24/22 02:55 RDW 13.3 % (12.1-15.1) 09/24/22 02:55 Plt Count 259 10^3/cmm (130-400) 09/25/22 04:55 MPV 8.7 fL (7.4-10.4) 09/24/22 02:55 Neut % (Auto) 69.7 % 09/24/22 02:55 Lymph % (Auto) 14.5 % 09/24/22 02:55 [place] % (Auto) 9.3 % 09/24/22 02:55 Eos % (Auto) 5.4 % 09/24/22 02:55 Baso % (Auto) 0.6 % 09/24/22 02:55 Neut # (Auto) 5.70 10^3/uL (1.8-7.7) 09/24/22 02:55 Lymph # (Auto) 1.2 10^3/uL (0.8-4.8) 09/24/22 02:55 [place] # (Auto) 0.8 10^3/uL (0.2-0.9) 09/24/22 02:55 Eos # (Auto) 0.4 10^3/uL (0.0-0.8) 09/24/22 02:55 Baso # (Auto) 0.1 10^3/uL (0.0-0.1) 09/24/22 02:55 Nucleated RBC % (auto) 0 % 09/24/22 02:55 Nucleated RBCs # 0.0 /100WBC 09/24/22 02:55 APTT 32.9 SECONDS (23.9-36.7) D 09/25/22 09:15 Sodium 139 mmol/L (136-145) 09/24/22 02:55 Potassium 4.1 mmol/L (3.5-5.1) 09/24/22 02:55 Chloride 104 mmol/L (98-107) 09/24/22 02:55 Carbon Dioxide 22 mmol/L (22-29) 09/24/22 02:55 Anion Gap 17.1 (5-19) 09/24/22 02:55 BUN 18 mg/dL (8-23) 09/24/22 02:55 Creatinine 1.0 mg/dL (0.7-1.2) 09/24/22 02:55 GFR Calculation 74.5 mL/min (90-130) L 09/24/22 02:55 Glucose 111 mg/dL (65-115) 09/24/22 02:55 Calculated Osmolality 291 mOsm/kg (285-295) 09/24/22 02:55 Calcium 9.0 mg/dL (8.5-10.5) 09/24/22 02:55 Total Bilirubin 0.5 mg/dL (0.15-1.2) 09/24/22 02:55 AST 42 U/L (0-40) H 09/24/22 02:55 ALT 22 U/L (0-41) 09/24/22 02:55 Alkaline Phosphatase 70 U/L (40-130) 09/24/22 02:55 Troponin T Baseline 40 ng/L (0-15) H 09/23/22 09:29 Troponin T 120 Minute 79.22 ng/L (0-15) H 09/23/22 11:33 Delta Troponin T 39.22 ABS# (0-10) H* 09/23/22 11:33 Troponin T Hi Sens 6Hr 278.0 ng/L (0-15) H 09/23/22 17:10 Troponin T Hi Sens 6Hr Delta 238.0 ng/L (0-12) H* 09/23/22 17:10 NT-Pro-B Natriuret Pep 139 pg/mL (0-125) H 09/23/22 09:29 Total Protein 6.6 g/dL (6.6-8.7) 09/24/22 02:55 Albumin 4.0 g/dL (3.5-5.2) 09/24/22 02:55 Globulin 2.6 g/dL (1.3-4.6) 09/24/22 02:55 Vitals Last Vital Signs Temp 97.6 F 09/25/22 08:39 Pulse 68 09/25/22 08:39 Resp 22 H 09/25/22 08:39 BP 125/80 09/25/22 08:39 Pulse Ox 97 09/25/22 08:39 O2 Del Method Room Air 09/25/22 08:39 Discharge Plan Discharge Patient Disposition: Home Condition: Stable Prescriptions: Continued fluticasone propionate [Flonase Allergy Relief] 50 mcg/actuation spray,suspension 1 - 2 spray intranasal DAILY PRN (Reason: Allergy Symptoms) Rx Instructions: administer into each nostril tramadol 50 mg tablet 50 mg PO TID PRN (Reason: Pain) sildenafil 50 mg tablet 50 mg PO DAILY PRN (Reason: Erectile Dysfunction) Refresh Tears 0.5 % Drops 1 drp ophthalmic (eye) QID PRN (Reason: Dry Eye(S)) Nitrostat 0.4 mg Tablet, Sublingual 0.4 mg SUBLINGUAL Q5M PRN (Reason: Chest Pain) Rx Instructions: do not exceed 3 doses per episode dorzolamide-timolol 22.3-6.8 mg/mL drops 1 drp ophthalmic (eye) BID albuterol sulfate 90 mcg/actuation HFA aerosol inhaler 2 puff INHALATION Q4H PRN (Reason: Shortness Of Breath) Fiber Gummies 2 gram Tablet,Chewable 4 g PO DAILY PRN (Reason: unknown) clopidogrel 75 mg tablet 75 mg PO DAILY 30 Days Qty: 30 0RF aspirin 81 mg tablet,delayed release (DR/EC) 81 mg PO DAILY 30 Days Qty: 30 0RF pantoprazole 40 mg tablet,delayed release (DR/EC) 40 mg PO DAILY 30 Days Qty: 30 0RF metoprolol succinate 25 mg tablet extended release 24 hr 25 mg PO DAILY 30 Days Qty: 60 0RF Rx Instructions: Hold if blood pressure less than 120 systolic Changed atorvastatin 40 mg tablet 20 mg PO DAILY 30 Days Qty: 30 0RF Discontinued lisinopril 10 mg tablet 10 mg PO DAILY PRN (Reason: hypertension) amlodipine 5 mg tablet 5 mg PO DAILY PRN (Reason: hypertension) Qty: 60 0RF Discharge Orders: Discharge Order (Routine); Ordered 09/25/22 Ordered By: Joyce Mclean Referrals: Raquel Simon FNP [Nurse Practitioner] - 10/01/22 12:45 pm Facundo Forman DO [Primary Care Provider] - 09/30/22 11:30 am (This appointment will be with Dr. Galvan. ) Patient Instructions: Coronary Artery Disease (DC), Heart Catheterization (DC), Opioid Safety, Post Angiogram Home Care Instructions Discharge Attestations Time Spent in Discharge Care*: greater than 30 min Quality Metrics Clinical Quality Measures [ Acute Myocardial Infaction { Clinical Trial Participant: No; Contraindication to aspirin: None; Aspirin prescribed; Contraindication to statin: None; Statin prescribed;}] Coding Level of Care Code Acute Code for [facility] Diagnoses NSTEMI (non-ST elevated myocardial infarction) I21.4 Benign essential HTN I10 Atherosclerosis of coronary artery of [place] heart without angina pectoris I25.10
== END 2022-09-25 12:41 | disposition home or self-care (01) | DRG 281 ==
LOC: ER 10:06 → ICU 13:47 → CSU 17:44 → ICU 09-24 05:30 → ER IP 09-24 05:30
PROVIDERS: Internal Medicine; Admitting Provider Student in an Organized Health Care Education/Training Program; Emergency Provider Family Medicine; PCP Electrodiagnostic Medicine; Visit Provider Student in an Organized Health Care Education/Training Program
PROC: B2111ZZ Fluoroscopy of Multiple Coronary Arteries using Low Osmolar Contrast (ICD-10-PCS; principal; 2022-09-24 06:00)
DX: I21.4 Non-ST elevation (NSTEMI) myocardial infarction (principal); I25.810 Atherosclerosis of coronary artery bypass graft(s) without angina pectoris; I25.10 Atherosclerotic heart disease of native coronary artery without angina pectoris; I10 Essential (primary) hypertension; E78.5 Hyperlipidemia, unspecified; K21.9 Gastro-esophageal reflux disease without esophagitis; Z79.891 Long term (current) use of opiate analgesic; Z79.51 Long term (current) use of inhaled steroids; Z79.02 Long term (current) use of antithrombotics/antiplatelets; Z79.82 Long term (current) use of aspirin; Z87.442 Personal history of urinary calculi; Z87.891 Personal history of nicotine dependence; H57.89 Other specified disorders of eye and adnexa
CPT/HCPCS: 36415; 71045; 80053; 83880; 84484; 85025; 85049; 85347; 85730; 93005; 93459; 96365; 96366; 96375; 96376; 99291; C1769; C1887; C1894; C8929; J1644; J2250; J2270; J3010; J3490; J7030; Q0163; Q9956; Q9967

== ENCOUNTER → 2022-10-01 10:37 | Outpatient (BNVA) | payer MEDICARE, OTHER, SELFPAY | PROVIDERS: PCP Electrodiagnostic Medicine; Visit Provider Nurse Practitioner Family | DX: I25.10 Atherosclerotic heart disease of native coronary artery without angina pectoris (principal); I10 Essential (primary) hypertension; Z87.891 Personal history of nicotine dependence; Z95.1 Presence of aortocoronary bypass graft | CPT/HCPCS: 99213 ==

== ENCOUNTER → 2023-02-12 14:11 | Outpatient (BNVA) | payer MEDICARE, OTHER, SELFPAY | PROVIDERS: PCP Electrodiagnostic Medicine; Visit Provider Podiatrist Foot & Ankle Surgery | DX: X58.XXXA Exposure to other specified factors, initial encounter; M84.374A Stress fracture, right foot, initial encounter for fracture | CPT/HCPCS: 73630; 99203 ==

== ENCOUNTER → 2023-05-13 08:34 | Outpatient (BNVA) | payer MEDICARE, SELFPAY | PROVIDERS: PCP Electrodiagnostic Medicine; Visit Provider Podiatrist Foot & Ankle Surgery | DX: M25.572 Pain in left ankle and joints of left foot (principal); M79.672 Pain in left foot | CPT/HCPCS: 20550; 73610; J1100; J3301 ==

== ENCOUNTER → 2023-06-24 08:45 | Outpatient (BNVA) | payer MEDICARE, SELFPAY | PROVIDERS: PCP Electrodiagnostic Medicine; Visit Provider Podiatrist Foot & Ankle Surgery | DX: M25.572 Pain in left ankle and joints of left foot | CPT/HCPCS: 99213 ==

== ENCOUNTER 2023-07-21 12:31 | Outpatient (CLI) | payer MEDICARE, SELFPAY ==
--- NOTE | 2023-07-21 12:36 | CT_ITS ---
WS: [id number] CT TEMPORAL BONES TECHNIQUE: Noncontrast CT of the temporal bones with coronal and sagittal reformatted images. CLINICAL INFORMATION: DIZZINESS AND GIDDINESS, OTALGIA RIGHT EAR, TINNITUS LT EAR COMPARISON: None. DLP: 307.[address] scans at [facility] use at least one of these dose optimization techniques: automated e xposure control; mA and/or kV adjustment per patient size (includes targeted exams where dose is matc hed to clinical indication); or iterative reconstruction. FINDINGS: Cavernous carotid calcification. Paranasal sinuses are well aerated. Mastoid air cells are well aerated. Normal posterior nasopharynx. RIGHT: Enlarged RIGHT vestibular aqueduct with bulbous middle and apical cochlear turns. Suspected ab sent septation between the middle and apical turns. Recommend correlation for sensorineural hearing l oss. Dilated vestibule. Vestibular aqueduct measures 3 mm on the sagittal imaging. RIGHT middle ear is well aerated. Normal ossicles. LEFT: Mastoid air cells are well aerated. Normal external auditory canal. Ossicles are normal in appearance . Middle ear is well aerated. Normal tegmen tympani. Semicircular canals and cochlea are normal in ap pearance. Prussak's space is normal. Normal inner ear structures. Normal vestibular aqueduct. Facial nerve recess is normal. CT/CT temporal bone wo con* [id number] IMPRESSION: 1. Mastoid air cells are well aerated. Paranasal sinuses are well aerated. 2. Dilated RIGHT vestibular aqueduct with dilated vestibule. Abnormal bulbous appearance of the apical and middle turns of the RIGHT cochlea. Recommend corre lation with congenital sensorineural hearing loss. 3. LEFT inner ear structures are normal in appearance.
== END 2023-07-21 12:32 | disposition home or self-care (01) ==
PROVIDERS: PCP Electrodiagnostic Medicine; Visit Provider Otolaryngology
DX: R42 Dizziness and giddiness (principal); H92.01 Otalgia, right ear; H93.12 Tinnitus, left ear; H90.5 Unspecified sensorineural hearing loss; H74.8X1 Other specified disorders of right middle ear and mastoid; Q16 Congenital malformations of ear causing impairment of hearing
CPT/HCPCS: 70480

== ENCOUNTER 2023-07-21 12:31 | Outpatient (CLI) | payer MEDICARE, SELFPAY ==
--- NOTE | 2023-07-21 12:34 | MR_ITS ---
WS: [id number] MRI HEAD WITH CONTRAST WITH ATTENTION TO THE INTERNAL AUDITORY CANALS TECHNIQUE: Sagittal T1, T2 axial, T2 axial flair, axial susceptibility weighted imaging, axial diffus ion weighted images, and coronal T2 images were obtained. Pre and post T1 axial and post T1 coronal i mages. ADC and FSPGR images. Post gadolinium images with attention to the internal auditory canals. A xial fiesta imaging. CLINICAL INFORMATION: HEARING LOSS R EAR/DIZZINESS/GIDDINESS/OTALGIA R EAR COMPARISON: None. FINDINGS: No evidence of restricted diffusion to suggest acute ischemia. Ventricular system and basilar cistern s are patent. Mild small vessel changes. Moderate parenchymal volume loss. Normal posterior fossa. No rmal vascular flow voids at the skull base. No extra-axial fluid collections. No evidence of mass or mass effect. Paranasal sinuses and mastoid air cells are well aerated. Normal posterior nasopharynx. No hemosiderin on susceptibility-weighted images. Normal optic chiasm and pituitary infundibulum. Nor mal trigeminal nerve root entry zones. No evidence of enhancing IAC or CP angle mass. Dilated RIGHT vestibular aqueduct with dilated vestibule. Bulbous apical and middle turns of the [place]. Normal-appearing basal turn RIGHT cochlea. Recommend correlation for RIGHT sensorineural hearing loss. More normal-appearing LEFT inner ear structures No abnormal intracranial enhancement. Incidental venous angioma RIGHT cerebellum. Normal visualized d ural venous sinuses. MR/MR iac's wo/w con* [id number] IMPRESSION: 1. Mild small vessel changes. Moderate parenchymal volume loss. 2. No evidence of enhancing IAC or CP angle mass. 3. 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 Recommend correlation with RIGHT sen sorineural hearing loss. 4. No hemosiderin on the susceptibly weighted images.
--- NOTE | 2023-07-21 12:34 | USCV_ITS ---
Blas Cummings Age: 67 Gender: M : 1955 Exam Date: 07/21/2023 13:31 Ordering Phys: Homa Holley Technologist: Exam Location: [facility] – [place] Indication: cca disease Risk Factors: Previous Vascular Surgery: Right Brachial BP: / Left Brachial BP: / Right Left Velocity (cm/s) Spectral Plaque Velocity (cm/s) Spectral Plaque Syst/Diast Broadening Syst/Diast Broadening 72.70/ 21.70 Prox CCA 93.60 / 23.70 74.50/ 21.70 Mid CCA 81.70 / 22.00 67.20/ 19.90 Distal CCA 59.50 / 15.20 49.00/ 21.70 Prox ICA 54.10 / 17.90 76.20/ 27.10 Mid ICA 47.60 / 20.50 73.50/ 21.40 Distal ICA 50.20 / 17.90 80.00 ECA 1.10 ICA/CCA 0.90 Antegrade Vertebral Antegrade 38.50/ 12.10 cm/s 34.50/ 11.40 cm/s Tri Subclavian Bi 48.80 78.90 FINDINGS Comparison:. 07/25/21 Poorly visualized left ICA. No significant elevation of systolic or diastolic velocities. Waveforms are normal. Mild carotid atherosclerosis. Antegrade vertebral arteries. CONCLUSIONS Bilateral ICA stenosis less than 50%. Mild carotid atherosclerosis. Dr. Vivien Jimenez DO (Electronically Signed) Final Date: 23 Jul 2023 10:12 S
[2023-07-21] MEDS: gadobenate dimeglumine 20 mL vial IV (14:24)
== END 2023-07-21 12:32 | disposition home or self-care (01) ==
PROVIDERS: PCP Electrodiagnostic Medicine; Visit Provider Otolaryngology
DX: R42 Dizziness and giddiness (principal); H92.01 Otalgia, right ear; H93.12 Tinnitus, left ear; H90.5 Unspecified sensorineural hearing loss; I65.23 Occlusion and stenosis of bilateral carotid arteries
CPT/HCPCS: 70553; 93880; A9577

== ENCOUNTER → 2023-12-31 15:46 | Outpatient (BNVA) | payer MEDICARE, SELFPAY | PROVIDERS: PCP Electrodiagnostic Medicine; Visit Provider Internal Medicine Cardiovascular Disease | DX: Z12.5 Encounter for screening for malignant neoplasm of prostate (principal); I10 Essential (primary) hypertension; R53.83 Other fatigue | CPT/HCPCS: 36415; 84439; 84443; G0103 ==

== ENCOUNTER → 2024-02-15 15:58 | Outpatient (BNVA) | payer MEDICARE, SELFPAY | PROVIDERS: PCP Electrodiagnostic Medicine | DX: R05.9 Cough, unspecified (principal); J20.9 Acute bronchitis, unspecified | CPT/HCPCS: 87426 ==

== ENCOUNTER → 2024-06-30 10:45 | Outpatient (BNVA) | payer MEDICARE, SELFPAY | PROVIDERS: PCP Electrodiagnostic Medicine; Visit Provider Nurse Practitioner Family | DX: Z12.5 Encounter for screening for malignant neoplasm of prostate (principal); I10 Essential (primary) hypertension; E78.5 Hyperlipidemia, unspecified; I25.10 Atherosclerotic heart disease of native coronary artery without angina pectoris; Z79.01 Long term (current) use of anticoagulants; Z95.1 Presence of aortocoronary bypass graft; Z95.5 Presence of coronary angioplasty implant and graft; I25.2 Old myocardial infarction | CPT/HCPCS: 36415; 80053; 80061; 99214; G0103 ==

== ENCOUNTER → 2024-10-14 15:14 | Outpatient (BNVA) | payer MEDICARE, SELFPAY | PROVIDERS: PCP Electrodiagnostic Medicine; Visit Provider Podiatrist Foot & Ankle Surgery | DX: M79.672 Pain in left foot (principal); M25.572 Pain in left ankle and joints of left foot; M10.9 Gout, unspecified | CPT/HCPCS: 20600; 73630; 99214 ==

== ENCOUNTER → 2024-10-21 12:56 | Outpatient (BNVA) | payer MEDICARE, SELFPAY | PROVIDERS: PCP Electrodiagnostic Medicine; Visit Provider Podiatrist Foot & Ankle Surgery | DX: M10.9 Gout, unspecified (principal); M25.572 Pain in left ankle and joints of left foot | CPT/HCPCS: 99214 ==

== ENCOUNTER → 2024-12-30 14:13 | Outpatient (BNVA) | payer MEDICARE, SELFPAY | PROVIDERS: PCP Electrodiagnostic Medicine; Visit Provider Internal Medicine Cardiovascular Disease | DX: I25.5 Ischemic cardiomyopathy (principal); I10 Essential (primary) hypertension; E78.5 Hyperlipidemia, unspecified; R41.89 Other symptoms and signs involving cognitive functions and awareness; Z78.9 Other specified health status; Z95.5 Presence of coronary angioplasty implant and graft; Z95.1 Presence of aortocoronary bypass graft; Z87.891 Personal history of nicotine dependence; I25.2 Old myocardial infarction | CPT/HCPCS: 99214 ==

== ENCOUNTER 2025-01-05 17:10 | Emergency (ER) | payer MEDICARE, SELFPAY ==
--- OUTSIDE RECORDS SUMMARY | 2025-01-05 17:16 | XMS_ITS | Clinical Summary ---
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
--- OUTSIDE RECORDS SUMMARY | 2025-01-05 17:16 | XMS_ITS | Clinical Summary ---
Author Organization [employer] Address [address] [facility] Attn: Epic Prelude ADT ZOILA GONZALEZ [address] Care Team Providers Care Special Projects Manager Name Role Phone Unavailable Primary Care Provider Unavailabl e Social History Tobacco Use Types Packs/Day Years Used Date Smoking Tobacco: Never Assessed Sex and Gender Information Value Date Recorded Sex Assigned at Not on file Legal Sex Male 5:31 AM [employer] Gender Identity Not on file Sexual Orientation [...]
--- OUTSIDE RECORDS SUMMARY | 2025-01-05 17:16 | XMS_ITS | Encounter Summary ---
Author Organization [facility] Address [address] [place] [address] Care Team Providers Care Emt I/99 Name Role Phone Unavailable Primary Care Provider Unavailabl e Encounter Details Date Type Department Care Team (Late st Contact Info) Description 10/23/2007 Emergency [facility] Emergency Department [address] 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 Gender Identity Not on file Sexual Orientation Not on file documented as of this encounter Plan of Treatment Not on file documented as of this encounter Procedures Procedure Name Priority Date/Time Associated Diagnosis Comments CBC WITH DIFFERENTIAL Stat 10/23/2007 2:27 PM CDT WOUND CULTURE WITH GRAM STAIN Stat 10/23/2007 2:15 PM CDT documented in this encounter Results * (ABNORMAL) CBC WITH DIFFERENTIAL (10/23/2007 2:27 PM CDT) NEUTROPHIL ABSOLUTE 6.4 2.0 - 8.0 K/ul [facility] NEUTROPHILS 75.4(H) 42.2 - 75.2 % [facility] HEMATOCRIT 40.1(L) 41.0 - 53.0 % [facility] EOSINOPHILS 1.1 0.0 - 7.0 % [facility] PLATELETS 283 140 - 440 K/ul [facility] EOSINOPHIL ABSOLUTE 0.1 0.0 - 0.7 K/ul [facility] RBC 4.66 4.60 - 6.20 Mil/ul [facility] LYMPHOCYTES 13.7(L) 24.0 - 44.0 % [facility] MCHC 34.4 30.0 - 35.0 g/dL [facility] LYMPHOCYTE ABSOLUTE 1.2 1.2 - 4.0 K/ul [facility] MCV 86.1 84.0 - 103.0 Fl [facility] MPV 8.5(L) 8.9 - 12.8 Fl [facility] BASOPHILS ABSOLUTE 0.0 0.0 - 0.2 K/ul [facility] BASOPHILS 0.4 0.0 - 1.0 % [facility] HEMOGLOBIN 13.8(L) 14.0 - 18.0 g/dL [facility] RDW 12.9 11.0 - 14.5 % [facility] MONOCYTE ABSOLUTE 0.8(H) 0.1 - 0.6 K/ul [facility] MONOCYTES 9.4 2.0 - 10.0 % [facility] WBC 8.5 4.8 - 10.8 K/ul [facility] MCH 29.6 27.0 - 34.0 pg [facility] Blood specimen (specimen) 10/23/2007 2:27 PM CDT 10/23/2007 2:27 PM CDT Paresh Washington POLICY INTERN HEMATOLOGY ORDERABLES Final R esult INTERFACE SYSTEM Refer to clinic/hospital department [facility] IA# [id number] [address] [place] [id number] * WOUND CULTURE WITH GRAM STAIN (10/23/2007 2:15 PM CDT) GRAM STAIN Occasional (0-1/oil hpf) Gram positive cocci No PMN WBC's observed INTERFACE SYSTEM FINAL REPORT Heavy isolation Gram positive cocci , Staphylococcus aureus Further identified as: Methicillin resistant Staph aureus FAXED TO ER AND INFECTION PREVENTION 10/25/07 10:48:23. Place patient in Contact Precautions- Gown and gloves for every entry into patient room. INTERFACE SYSTEM SUSCEPTIBILITY PERFORMED ON STAPHYLOCOCCUS AUREUS INTERFACE SYSTEM Specimen from abscess (specimen) 10/23/2007 2:15 PM CDT 10/23/2007 2:20 PM CDT Narrative Organism Antibiotic Method Susceptibility Staphylococcus aureus CLINDAMYCIN CHRISTINA MCG/ML <=0.25: Susceptible Staphylococcus aureus ERYTHROMYCIN CHRISTINA MCG/ML >=8: Resistant Staphylococcus aureus OXACILLIN (Nafcillin) CHRISTINA MCG/ML >=4: Resistant Staphylococcus aureus TETRACYCLINE CHRISTINA MCG/ML <=1: Susceptible Staphylococcus aureus TRIMETHOPRIM/ SULFAMETHOXAZOLE M IC MCG/ML <=10: Susceptible Staphylococcus aureus VANCOMYCIN CHRISTINA MCG/ML <=1: Susceptible Paresh Washington POLICY INTERN MICROBIOLOGY - GENERAL ORDERA BLES Final Result INTERFACE SYSTEM Refer to clinic/hospital department documented in this encounter Visit Diagnoses Diagnosis Personal history of allergy to penicillin Personal history of allergy to sulfonamides documented in this encounter
[2025-01-05 17:17] VITALS: BP 144/95; PULSE 88; RESP 18; TEMP 36.7; O2SAT 97; BMI 32.1
[2025-01-05 17:48] VITALS: BP 152/97; O2SAT 95
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
== END 2025-01-05 19:38 | disposition home or self-care (01) ==
PROVIDERS: Emergency Provider Physician Assistant; PCP Electrodiagnostic Medicine
DX: S00.83XA Contusion of other part of head, initial encounter (principal); S09.8XXA Other specified injuries of head, initial encounter; V89.2XXA Person injured in unspecified motor-vehicle accident, traffic, initial encounter; Z79.02 Long term (current) use of antithrombotics/antiplatelets; E78.5 Hyperlipidemia, unspecified; I25.10 Atherosclerotic heart disease of native coronary artery without angina pectoris; I10 Essential (primary) hypertension
CPT/HCPCS: 70450; 70486; 72125; 96372; 99284; J1885

== ENCOUNTER → 2025-01-13 07:26 | Outpatient (BNVA) | payer MEDICARE, SELFPAY | PROVIDERS: PCP Electrodiagnostic Medicine; Visit Provider Podiatrist Foot & Ankle Surgery | DX: M10.9 Gout, unspecified (principal); M25.572 Pain in left ankle and joints of left foot | CPT/HCPCS: 99213 ==

== ENCOUNTER 2025-02-08 15:14 | Outpatient (CLI) | payer MEDICARE, OTHER, SELFPAY ==
--- NOTE | 2025-02-08 15:18 | CT_ITS ---
WS: [id number] CT PELVIS NONCONTRAST HISTORY: R HIP PAIN TECHNIQUE: Contiguous imaging is performed of the pelvis without contrast. Coronal and sagittal reformats are reviewed. All CT scans at [facility] use at least one of these dose optimization techniques: automated exposure control; mA and/or kV adjustment per patient size (includes targeted exams where dose is matched to clinical indication); or iterative reconstruction. DLP: 321.60 mGy.cm COMPARISON: None available. No acute fractures or healing fractures with sclerosis identified. Femoral heads are positioned in the acetabulum. Mild osteophytic ridging and degenerative changes at the hip joints. There is mild narrowing and degenerative air in the SI joints. No sacral fracture. Pubic rami are intact. No soft tissue acute abnormalities. No hematoma or contusion. Symmetric appearance of the muscles and soft tissues. Sigmoid diverticuli without acute diverticulitis. No free fluid in the pelvis. Fat-containing LEFT inguinal hernia is small. The appearance of the groin is similar to the study from 12/23/2012 with no appreciable change. CT/CT pelvis con [id number] IMPRESSION: 1. No acute or healing fractures in the pelvis. 2. No soft tissue contusion or hematoma. 3. Appearance of the inguinal regions and groin is very similar to a prior CT from 2012.
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
== END 2025-02-08 15:15 | disposition home or self-care (01) ==
LOC: RAD 15:17
PROVIDERS: PCP Electrodiagnostic Medicine; Visit Provider Electrodiagnostic Medicine
DX: M25.551 Pain in right hip (principal); K57.30 Diverticulosis of large intestine without perforation or abscess without bleeding; M16.0 Bilateral primary osteoarthritis of hip; M46.1 Sacroiliitis, not elsewhere classified; M62.50 Muscle wasting and atrophy, not elsewhere classified, unspecified site; M25.752 Osteophyte, left hip
CPT/HCPCS: 72192; 73700